=== PATIENT | female | born 1940 | race Two or more races ===

== ENCOUNTER 2018-01-22 07:21 | Emergency (ER) | payer OTHER, MEDICAID ==
[~2018-01-22] VITALS: Ht 165.1 cm; Wt 67.6 kg
[~2018-01-22 07:21] MED LIST: AMIODARONE PO; ASP81EC PO; Furosemide PO; HYDR-4683 PO; LIS5T PO; MET25T PO; METH2.5T3 PO; Nitroglycerin SL; OMEP20CA74 PO; POTA10TA75 PO; SIMV20TA90 PO; [UNRECOGNIZED DRUG - CODE] XX
[2018-01-22] MEDS ORDERED: SODIUM CHLORIDE 0.9% 1,000 ML IV ONE (09:40)
[2018-01-22 10:43] LABS: Basophils # (auto) 0 uL; Basophils % (auto) 0.4 % (0.0-2.0); Eosinophils # (auto) 0.1 uL; Eosinophils % (auto) 1.1 % (0.0-7.0); Hematocrit 38.9 % (36.0-46.0); Hemoglobin 12.9 g/dL (12.2-16.2); Lymphocytes # (auto) 1.7 uL; Mean Corpuscular Hemoglobin 31.1 pg (28.0-32.0); Mean Corpuscular Hgb Conc. 33.3 g/dL (32.0-36.0); Mean Corpuscular Volume 93.6 fL (80.0-100.0); Monocytes # (auto) 0.6 uL; Monocytes % (auto) 6.1 % (0.0-12.0); Neutrophils # (auto) 7.4 uL; Neutrophils % (auto) 75.4 % (37.0-80.0); Nucleated Red Blood Cells % 0.1 %; Platelet Count (auto) 152 10^3/uL (140-450); Red Blood Cells 4.16 10^6/uL (4.0-5.20); White Blood Cell 9.8 10^3/uL (4.4-10.8)
[2018-01-22 11:04] LABS: Partial Thromboplastin Time 30.6 sec (23.78-33.04); Prothrombin Time 10.7 sec (9.27-12.13)
[2018-01-22 11:06] LABS: Alanine Aminotransferase 15 U/L (13-56); Albumin 3.5 g/dL (3.4-5.0); Alkaline Phosphatase 137 U/L (45-117); Anion Gap 7 (5-15); Aspartate Aminotransferase 15 U/L (15-37); Bilirubin, Total 0.6 mg/dL (0.2-1.0); Blood Urea Nitrogen 13 mg/dL (7-18); Calcium 8.6 mg/dL (8.5-10.1); Carbon Dioxide 23 mmol/L (21-32); Chloride 110 mmol/L (98-107); GFR African American 88 mL/min; GFR Non-African American 72 mL/min; Glucose 95 mg/dL (74-106); Potassium 3.9 mmol/L (3.5-5.1); Sodium 140 mmol/L (136-145); Total Protein 6.9 g/dL (6.4-8.2)
[2018-01-22 11:47] VITALS: BP 179/65
[2018-01-22 12:09] LABS: Urine Bacteria NONE SEEN /hpf (None Seen); Urine Blood Negative /uL (Negative); Urine Specific Gravity 1.006 (1.001-1.035); Urine WBC 3 /hpf (0 - 5)
== END 2018-01-22 12:45 | disposition home or self-care (01) ==
LOC: ER 07:21
DX: S42.202A Unspecified fracture of upper end of left humerus, initial encounter for closed fracture (principal); R07.81 Pleurodynia; E78.5 Hyperlipidemia, unspecified; I10 Essential (primary) hypertension; I25.2 Old myocardial infarction; Z95.1 Presence of aortocoronary bypass graft; Z88.8 Allergy status to other drugs, medicaments and biological substances; W19.XXXA Unspecified fall, initial encounter; Y93.89 Activity, other specified; Y92.89 Other specified places as the place of occurrence of the external cause; Y99.8 Other external cause status
CPT/HCPCS: 29105; 36415; 71101; 73030; 80053; 81001; 84484; 85025; 85610; 85730; 99285; J7030

== ENCOUNTER 2019-01-30 06:14 | Emergency (ER) | payer OTHER, MEDICAID ==
[~2019-01-30] VITALS: Ht 167.6 cm; Wt 61.2 kg
[~2019-01-30 06:14] MED LIST changes: +AMIO200T5 PO; -AMIODARONE PO; -HYDR-4683 PO; +HYDR-4833 PO
[2019-01-30] MEDS ORDERED: IPRATROPIUM BROM 0.5 MG/2.5ML INH SOL NEB ONE (06:30)
[2019-01-30] MEDS ORDERED: ALBUTEROL SULF 2.5 MG/0.5ML(0.5%) NEB SOLN NEB STA (06:30)
[2019-01-30] MEDS ORDERED: methylPREDNISolone SOD SUCC 125 MG/2 ML VL IV ONE (07:30)
[2019-01-30 07:32] LABS: Basophils # (auto) 0 uL; Basophils % (auto) 0.4 % (0.0-2.0); Eosinophils # (auto) 0.2 uL; Eosinophils % (auto) 3.1 % (0.0-7.0); Hematocrit 39.2 % (36.0-46.0); Lymphocytes # (auto) 1.5 uL; Lymphocytes % (auto) 20.6 % (10.0-50.0); Mean Corpuscular Hgb Conc. 33.2 g/dL (32.0-36.0); Mean Corpuscular Volume 93.3 fL (80.0-100.0); Monocytes # (auto) 0.4 uL; Monocytes % (auto) 5.9 % (0.0-12.0); Platelet Count (auto) 151 10^3/uL (140-450); Red Cell Distribution Width 15.8 % (11.8-14.3); White Blood Cell 7.1 10^3/uL (4.4-10.8)
[2019-01-30 07:43] LABS: Alanine Aminotransferase 16 U/L (13-56); Albumin 3.4 g/dL (3.4-5.0); Anion Gap 5 (5-15); Blood Urea Nitrogen 15 mg/dL (7-18); Calcium 8.9 mg/dL (8.5-10.1); Carbon Dioxide 27 mmol/L (21-32); Chloride 109 mmol/L (98-107); Glucose 94 mg/dL (74-106); Potassium 3.9 mmol/L (3.5-5.1); Sodium 141 mmol/L (136-145)
[2019-01-30 07:47] LABS: Alkaline Phosphatase 133 U/L (45-117); Aspartate Aminotransferase 16 U/L (15-37); BUN/Creatinine Ratio 20.3; Bilirubin, Total 0.5 mg/dL (0.2-1.0); GFR African American 97 mL/min; GFR Non-African American 80 mL/min; Total Protein 6.7 g/dL (6.4-8.2)
[2019-01-30] MEDS ORDERED: cefTRIAXone 1GM/50ML D5W 50 ML IV ONE (09:00)
[2019-01-30 09:40] VITALS: BP 98/78
[2019-01-30] MEDS ORDERED: ALBUTEROL SULF 2.5 MG/0.5ML(0.5%) NEB SOLN NEB ONE (10:30)
[2019-01-30 10:37] LABS: Urine Bacteria FEW /hpf (None Seen); Urine Blood Negative /uL (Negative); Urine WBC 5 /hpf (0 - 5)
== END 2019-01-30 11:22 | disposition home or self-care (01) ==
LOC: ER 06:14
DX: J44.1 Chronic obstructive pulmonary disease with (acute) exacerbation (principal); E78.5 Hyperlipidemia, unspecified; I10 Essential (primary) hypertension; I25.2 Old myocardial infarction; F17.210 Nicotine dependence, cigarettes, uncomplicated; Z86.39 Personal history of other endocrine, nutritional and metabolic disease; Z95.1 Presence of aortocoronary bypass graft
CPT/HCPCS: 36415; 71045; 80053; 81001; 84484; 85025; 87040; 93005; 94640; 96365; 96375; 99284; J0696; J2930; J7611; J7644

== ENCOUNTER 2019-04-21 16:20 | Inpatient (IN) | payer OTHER, MEDICAID ==
[~2019-04-21] VITALS: Ht 165.1 cm; Wt 66.4 kg
[2019-04-21 17:04] LABS: Basophils # (auto) 0 uL; Basophils % (auto) 0.3 % (0.0-2.0); Eosinophils # (auto) 0.2 uL; Eosinophils % (auto) 2.2 % (0.0-7.0); Hematocrit 38.7 % (36.0-46.0); Lymphocytes # (auto) 1.2 uL; Mean Corpuscular Hemoglobin 31.1 pg (28.0-32.0); Mean Corpuscular Hgb Conc. 33.7 g/dL (32.0-36.0); Mean Corpuscular Volume 92.3 fL (80.0-100.0); Monocytes # (auto) 0.4 uL; Monocytes % (auto) 4.6 % (0.0-12.0); Neutrophils # (auto) 6.2 uL; Neutrophils % (auto) 77.9 % (37.0-80.0); Platelet Count (auto) 153 10^3/uL (140-450); Red Blood Cells 4.19 10^6/uL (4.0-5.20); White Blood Cell 7.9 10^3/uL (4.4-10.8)
[2019-04-21 17:25] LABS: Alanine Aminotransferase 21 U/L (13-56); Albumin 3.6 g/dL (3.4-5.0); Anion Gap 3 (5-15); Aspartate Aminotransferase 22 U/L (15-37); Blood Urea Nitrogen 17 mg/dL (7-18); Carbon Dioxide 27 mmol/L (21-32); Chloride 110 mmol/L (98-107); Glucose 107 mg/dL (74-106); Potassium 4.1 mmol/L (3.5-5.1); Sodium 140 mmol/L (136-145)
[2019-04-21 17:29] LABS: Alkaline Phosphatase 107 U/L (45-117); BUN/Creatinine Ratio 22.4; Bilirubin, Total 0.2 mg/dL (0.2-1.0); GFR African American 94 mL/min; GFR Non-African American 78 mL/min; Total Protein 6.9 g/dL (6.4-8.2)
[2019-04-21] MEDS ORDERED: ONDANSETRON HCL 4 MG/2 ML VIAL IV ONE (18:00)
[2019-04-21] MEDS ORDERED: MORPHINE SULFATE 4 MG/ML SYR/VIAL IV ONE (18:00)
[2019-04-21] MEDS ORDERED: NITROGLYCERIN 0.4 MG SL TAB SL PRN ×2 (18:30→18:45)
[2019-04-21] MEDS ORDERED: MORPHINE SULF INJ 2 MG/ML SYRINGE 1ML IV PRN (18:30)
[2019-04-21] MEDS: MORPHINE SULF INJ 2 MG/ML SYRINGE 1ML IV PRN (20:10)
[2019-04-21] MEDS: ONDANSETRON HCL 4 MG/2 ML VIAL IV PRN (20:10)
[2019-04-21 21:14] LABS: Urine Bacteria NONE SEEN /hpf (None Seen); Urine Blood Negative /uL (Negative); Urine Mucus FEW (None Seen); Urine Specific Gravity 1.019 (1.001-1.035); Urine WBC 1 /hpf (0 - 5)
[2019-04-21] MEDS: FUROSEMIDE 40 MG TAB PO SCH (21:18)
[2019-04-21] MEDS: AMIODARONE HCL 200 MG TAB PO SCH (22:16)
[2019-04-21] MEDS: ATORVASTATIN 20 MG TAB PO SCH (22:17)
[2019-04-21] MEDS: METOPROLOL TARTRATE 25 MG TAB PO SCH (22:17)
[2019-04-21 22:25] VITALS: BP 126/60
--- NOTE | 2019-04-21 22:25 | NUR ---
MS ADMIT FROM ER RECEIVED PATIENT VIA GURNEY FROM ER. PATIENT A/O X4, BEDREST. NO S/S OF DISTRESS OR SOB. NO COMPLAINTS OF PAIN AT THIS TIME. SCHERER CATHETER PRESENT DRAINING CLEAR, YELLOW URINE. UPDATED PATIENT ON POC, VERBALIZED UNDERSTANDING. BED LOCKED IN LOW POSITION, CALL LIGHT WITHIN REACH. WILL CONTINUE TO MONITOR PATIENT Q1HR AND PRN.
[2019-04-22] MEDS: MORPHINE SULF INJ 2 MG/ML SYRINGE 1ML IV PRN (04:37)
[2019-04-22 05:09] VITALS: BP 120/51
[2019-04-22] MEDS: FUROSEMIDE 40 MG TAB PO SCH ×2 (05:37→19:27)
[2019-04-22 06:37] LABS: Basophils # (auto) 0 uL; Basophils % (auto) 0.2 % (0.0-2.0); Eosinophils # (auto) 0.1 uL; Eosinophils % (auto) 0.7 % (0.0-7.0); Hematocrit 38.8 % (36.0-46.0); Lymphocytes # (auto) 0.6 uL; Lymphocytes % (auto) 5.4 % (10.0-50.0); Mean Corpuscular Hemoglobin 30.9 pg (28.0-32.0); Mean Corpuscular Hgb Conc. 33.5 g/dL (32.0-36.0); Mean Corpuscular Volume 92.3 fL (80.0-100.0); Monocytes # (auto) 0.5 uL; Monocytes % (auto) 3.9 % (0.0-12.0); Neutrophils # (auto) 10.4 uL; Neutrophils % (auto) 89.8 % (37.0-80.0); Platelet Count (auto) 152 10^3/uL (140-450); Red Cell Distribution Width 15.6 % (11.8-14.3); White Blood Cell 11.5 10^3/uL (4.4-10.8)
[2019-04-22 06:58] LABS: BUN/Creatinine Ratio 20.5; Calcium 8.7 mg/dL (8.5-10.1); Potassium 3.7 mmol/L (3.5-5.1)
[2019-04-22 08:20] LABS: INR 0.98 (0.9-1.15); Partial Thromboplastin Time 29.8 sec (23.64-32.05)
[2019-04-22 08:50] VITALS: BP 115/55
--- NOTE | 2019-04-22 09:00 | NUR ---
SEEN AND EXAMINED BY DR HERNANDEZ, INFORMED PATIENT SURGERY ON SUNDAY BY DR COHN.
[2019-04-22] MEDS: ONDANSETRON HCL 4 MG/2 ML VIAL IV PRN ×2 (09:28→11:42)
[2019-04-22] MEDS: LISINOPRIL 5 MG TAB PO SCH (10:00)
[2019-04-22] MEDS: METOPROLOL TARTRATE 25 MG TAB PO SCH ×2 (10:00→21:51)
[2019-04-22] MEDS: PANTOPRAZOLE 40 MG TAB PO SCH (10:00)
[2019-04-22] MEDS: AMIODARONE HCL 200 MG TAB PO SCH ×2 (10:00→21:50)
--- NOTE | 2019-04-22 11:12 | NUR ---
ECHO IN PROGRESS.
[2019-04-22] MEDS: ENOXAPARIN SOD 40 MG/0.4 ML SYRINGE SC SCH (11:38)
[2019-04-22 12:36] VITALS: BP 119/54
[2019-04-22 16:25] VITALS: BP 136/53
--- NOTE | 2019-04-22 19:35 | NUR ---
OPENING SHIFT NOTE RECEIVED REPORT FROM DAYSHIFT RN. PATIENT LYING IN BED WITH EYES CLOSED. NO S/S OF DISTRESS OR SOB. NO PAIN REPORTED AT THIS TIME. PATIENT A/O X4, BEDREST. SCHERER CATHETER PRESENT DRAINING CLEAR, YELLOW URINE. UPDATED PATIENT ON POC, VERBALIZED UNDERSTANDING. BED LOCKED IN LOW POSITION, CALL LIGHT WITHIN REACH. WILL CONTINUE TO MONITOR PATIENT Q1HR AND PRN.
[2019-04-22 21:07] VITALS: BP 127/60
[2019-04-22] MEDS: ATORVASTATIN 20 MG TAB PO SCH (21:51)
[2019-04-23 05:13] VITALS: BP 130/74
[2019-04-23] MEDS: FUROSEMIDE 40 MG TAB PO SCH ×2 (05:39→18:04)
[2019-04-23 06:07] LABS: Basophils # (auto) 0 uL; Basophils % (auto) 0.2 % (0.0-2.0); Eosinophils # (auto) 0 uL; Eosinophils % (auto) 0.3 % (0.0-7.0); Hematocrit 39.6 % (36.0-46.0); Hemoglobin 13.3 g/dL (12.2-16.2); Lymphocytes % (auto) 8.9 % (10.0-50.0); Mean Corpuscular Hemoglobin 30.9 pg (28.0-32.0); Mean Corpuscular Hgb Conc. 33.5 g/dL (32.0-36.0); Mean Corpuscular Volume 92.4 fL (80.0-100.0); Monocytes # (auto) 0.8 uL; Monocytes % (auto) 6.8 % (0.0-12.0); Neutrophils # (auto) 9.6 uL; Neutrophils % (auto) 83.8 % (37.0-80.0); Nucleated Red Blood Cells % 0.2 %; Platelet Count (auto) 152 10^3/uL (140-450); Red Blood Cells 4.28 10^6/uL (4.0-5.20); Red Cell Distribution Width 15.7 % (11.8-14.3); White Blood Cell 11.5 10^3/uL (4.4-10.8)
[2019-04-23 06:18] LABS: Calcium 8.4 mg/dL (8.5-10.1); Potassium 3.5 mmol/L (3.5-5.1)
[2019-04-23 06:20] LABS: BUN/Creatinine Ratio 20.4
--- NOTE | 2019-04-23 07:30 | NUR ---
Opening Shift Note Assumed care of patient, awake and alert. No S/S of distress/SOB or pain on room air. Instructed on POC and to call for assist PRN, will continue to monitor for changes Q1hr and PRN. Bed in low and locked position, rails up x2, no-slip socks on. Bed alarm on.
[2019-04-23] MEDS: MORPHINE SULF INJ 2 MG/ML SYRINGE 1ML IV PRN ×2 (08:26→21:07)
[2019-04-23 09:00] VITALS: BP 122/60
[2019-04-23] MEDS: AMIODARONE HCL 200 MG TAB PO SCH ×2 (09:47→21:07)
[2019-04-23] MEDS: PANTOPRAZOLE 40 MG TAB PO SCH (09:48)
[2019-04-23] MEDS: ENOXAPARIN SOD 40 MG/0.4 ML SYRINGE SC SCH (09:48)
[2019-04-23] MEDS: LISINOPRIL 5 MG TAB PO SCH (09:48)
[2019-04-23] MEDS: METOPROLOL TARTRATE 25 MG TAB PO SCH (09:48)
--- NOTE | 2019-04-23 09:55 | NUR ---
DR HERNANDEZ AT BEDSIDE
--- NOTE | 2019-04-23 11:25 | NUR ---
DR SALAZAR AT BEDSIDE NO NEW ORDERS
[2019-04-23 13:00] VITALS: BP 118/44
--- NOTE | 2019-04-23 14:34 | NUR ---
assessment Patient is a 78 year old female who is alert and oriented. Patients cognitive abilities are intact. Prior to admission patient lived home with her Marc and functioned independently. Patient informed me she is able to care for her own ADLs. Per patient she informed me she was helping her while he was working on the truck and she tripped on wires and fell. Patient fractured her hip. Patient really wants to return home on discharge. I informed patient we would discharge plan after surgery and after PT eval. Patient has no DME. Patient has good family support. Patients PCP is Dr Day. I informed patient she has a right to speak to a executive secretary social welfare regarding all care. I informed patient she has a right to participate in any and all discharge planning. Patient does not have a POA and advanced directive. I have offered patient information on POA and advanced directives. I informed the patient the advantages and benefits of having an Advanced Directive. Patient verbalized understanding and agreed to discharge plan. Addendum: 04/23/19 at 1442 by Silvina RENEE Amended: Links added.
--- NOTE | 2019-04-23 16:20 | NUR ---
DR COHN AT BEDSIDE STATED PATIENT TO HAVE PROCEDURE SCHEDULED FOR SUNDAY. HOLD LOVENOX ON 04/24/19.
[2019-04-23 16:59] VITALS: BP 122/55
--- NOTE | 2019-04-23 19:30 | NUR ---
OPENING SHIFT NOTE RECEIVED REPORT FROM DAYSHIFT RN. PATIENT LYING IN BED WITH FAMILY AT BEDSIDE. NO S/S OF DISTRESS OR SOB. NO PAIN REPORTED AT THIS TIME. PATIENT A/O X4, BEDREST. SCHERER CATHETER PRESENT DRAINING CLEAR, YELLOW URINE. UPDATED PATIENT ON POC, VERBALIZED UNDERSTANDING. BED LOCKED IN LOW POSITION, CALL LIGHT WITHIN REACH. WILL CONTINUE TO MONITOR PATIENT Q1HR AND PRN.
[2019-04-23] MEDS: ATORVASTATIN 20 MG TAB PO SCH (21:07)
[2019-04-23 22:00] VITALS: BP 122/51
--- NOTE | 2019-04-24 00:45 | NUR ---
Assumed care of patient who is resting in bed with eyes closed. Respirations are even and non-labored. Flynn catheter is in place, patent and draining clear yellow urine to gravity. Collection bag secured below the level of the bladder. Patient ambulates without the use of assistive devices at baseline, however is currently on bedrest due to left hip fracture. Bed is in low locked position with side rails up x2 and call light is within reach. Will continue to monitor for changes PRN.
[2019-04-24 04:56] LABS: Basophils # (auto) 0.1 uL; Basophils % (auto) 0.9 % (0.0-2.0); Eosinophils # (auto) 0.1 uL; Eosinophils % (auto) 0.8 % (0.0-7.0); Hematocrit 38.9 % (36.0-46.0); Hemoglobin 12.9 g/dL (12.2-16.2); Lymphocytes % (auto) 8.1 % (10.0-50.0); Mean Corpuscular Hemoglobin 30.8 pg (28.0-32.0); Mean Corpuscular Hgb Conc. 33.2 g/dL (32.0-36.0); Mean Corpuscular Volume 92.6 fL (80.0-100.0); Monocytes # (auto) 1.2 uL; Monocytes % (auto) 9.6 % (0.0-12.0); Neutrophils # (auto) 9.9 uL; Neutrophils % (auto) 80.6 % (37.0-80.0); Platelet Count (auto) 152 10^3/uL (140-450); Red Cell Distribution Width 15.8 % (11.8-14.3); White Blood Cell 12.3 10^3/uL (4.4-10.8)
[2019-04-24 05:17] LABS: BUN/Creatinine Ratio 26.9; Calcium 8.4 mg/dL (8.5-10.1); Potassium 3.6 mmol/L (3.5-5.1)
[2019-04-24 05:45] VITALS: BP 117/54
[2019-04-24] MEDS: FUROSEMIDE 40 MG TAB PO SCH ×2 (05:56→18:00)
--- NOTE | 2019-04-24 07:45 | NUR ---
OPENIING Patient awake in bed, bed in lowest position, call light within reach. no distress noted at this time. WIll f/u with morning assessment. per noc nurse, the patient will undergo surgery with dr ariza tomorrow sunday, and to hold off on the lovenox today 04-24 and tomorrow 04-25 per the note of dr ariza will continue to monitor this patient closely, and monitor for pain.
[2019-04-24 08:38] VITALS: BP 115/47
[2019-04-24] MEDS: LISINOPRIL 5 MG TAB PO SCH (10:00)
[2019-04-24] MEDS: PANTOPRAZOLE 40 MG TAB PO SCH (11:06)
[2019-04-24] MEDS: AMIODARONE HCL 200 MG TAB PO SCH ×2 (11:07→22:13)
[2019-04-24] MEDS: METOPROLOL TARTRATE 25 MG TAB PO SCH ×2 (11:07→22:15)
[2019-04-24] MEDS: MORPHINE SULF INJ 2 MG/ML SYRINGE 1ML IV PRN ×2 (13:00→21:59)
[2019-04-24 17:00] VITALS: BP 118/49
--- NOTE | 2019-04-24 19:30 | NUR ---
Opening Shift Note Pt is resting in bed with eyes open and resp rate is even and unlabored. POC discussed with pt and pt verbalizes understanding. Pt is refusing to allow staff to turn or roll her r/t left hip fx and risks of skin breakdown explained to pt and pt verbalizes understanding. Pt will not even allow this RN to move her LE at all. Able to push a pillow down under right hip at this time. Will continue to monitor. Bed is low, wheels are locked, and call light is with in reach. Bed alarm is set for pt safety.
[2019-04-24 22:00] VITALS: BP 113/52
[2019-04-24] MEDS: ATORVASTATIN 20 MG TAB PO SCH (22:13)
[2019-04-25] VITALS (11 sets, daily range): BP systolic 107–131; BP diastolic 49–72
[2019-04-25] MEDS: MORPHINE SULF INJ 2 MG/ML SYRINGE 1ML IV PRN (04:58)
--- NOTE | 2019-04-25 05:13 | NUR ---
Pt cleaned with CHG wipes , gown changed , and complete linen and change done now.
[2019-04-25 05:14] LABS: Basophils # (auto) 0 uL; Basophils % (auto) 0.3 % (0.0-2.0); Eosinophils # (auto) 0.2 uL; Hematocrit 37.8 % (36.0-46.0); Hemoglobin 12.9 g/dL (12.2-16.2); Lymphocytes # (auto) 0.9 uL; Mean Corpuscular Hemoglobin 31.7 pg (28.0-32.0); Mean Corpuscular Hgb Conc. 34.1 g/dL (32.0-36.0); Mean Corpuscular Volume 93.1 fL (80.0-100.0); Monocytes % (auto) 9.7 % (0.0-12.0); Neutrophils # (auto) 8.1 uL; Platelet Count (auto) 138 10^3/uL (140-450); Red Blood Cells 4.06 10^6/uL (4.0-5.20); Red Cell Distribution Width 15.5 % (11.8-14.3); White Blood Cell 10.2 10^3/uL (4.4-10.8)
[2019-04-25] MEDS: FUROSEMIDE 40 MG TAB PO SCH ×2 (05:16→18:00)
[2019-04-25 05:26] LABS: BUN/Creatinine Ratio 29.5; Calcium 8.6 mg/dL (8.5-10.1); Potassium 3.7 mmol/L (3.5-5.1)
--- NOTE | 2019-04-25 07:25 | NUR ---
Opening Note Received report from shift lab technician RN. Patient is awake, alert and oriented x4. Patient denies pain at this time. Patient is NPO for scheduled surgery today. Patient has Flynn catheter, patent and draining yellow urine. Reviewed plan of care with patient, patient verbalized understanding. Bed in low and locked position, call light within reach. Will continue to monitor Q1 hour and PRN.
--- NOTE | 2019-04-25 08:15 | NUR ---
IV Insertion 20g IV inserted in left AC. Patient tolerated well. IV removed from left hand, pressure dressing applied. Will continue to monitor Q1 hour and PRN.
[2019-04-25] MEDS: AMIODARONE HCL 200 MG TAB PO SCH ×2 (08:25→23:01)
[2019-04-25] MEDS: PANTOPRAZOLE 40 MG TAB PO SCH (08:30)
[2019-04-25] MEDS: METOPROLOL TARTRATE 25 MG TAB PO SCH ×2 (08:30→22:00)
[2019-04-25] MEDS: LISINOPRIL 5 MG TAB PO SCH (08:30)
--- NOTE | 2019-04-25 08:30 | NUR ---
Patient taken down to OR
[2019-04-25] MEDS ORDERED: TETRACAINE 1% INJ 2 ML VIAL IJ ONE (09:22)
[2019-04-25] MEDS ORDERED: fentaNYL CITRATE 100 MCG/2 ML VL ONE (09:25)
[2019-04-25] MEDS ORDERED: MORPHINE SULF(PF) 0.5MG/ML 10ML VIAL ONE (09:25)
[2019-04-25] MEDS ORDERED: EPINEPHrine HCL 1 MG/1 ML AMP ONE (09:26)
[2019-04-25] MEDS ORDERED: PROPOFOL 10 MG/ML 20 ML IV ONE (09:26)
[2019-04-25] MEDS ORDERED: SODIUM CHLORIDE LOCK 10 ML ONE (09:26)
[2019-04-25] MEDS ORDERED: ceFAZolin 1GM/50ML 50 ML IV ONE (09:26)
[2019-04-25] MEDS ORDERED: BUPIVACAINE/DEXTROSE MPF 0.75% 2 ML AMP IT ONE (09:26)
[2019-04-25] MEDS ORDERED: ONDANSETRON HCL 4 MG/2 ML VIAL ONE (09:26)
[2019-04-25] MEDS ORDERED: MIDAZOLAM HCL 1MG/1ML-2 ML VIAL ONE (09:26)
[2019-04-25] MEDS ORDERED: KETAMINE HCL 1 ML ONE (09:29)
[2019-04-25] MEDS ORDERED: LIDOCAINE HCL 100 MG/5ML (2%) SYRG INJ IV ONE (10:18)
[2019-04-25] MEDS ORDERED: ceFAZolin 1GM VL ONE (10:18)
[2019-04-25] MEDS ORDERED: LIDOCAINE 4MG/ML IV SOLN 500 ML IV SCH (10:45)
--- NOTE | 2019-04-25 11:22 | NUR ---
NUTRITION CONSULT/ASSESSMENT NOTES Please refer to link notes of nutrition screen form filed under the intervention section of the plan of care for further details. Est. Needs: 1650 kcal to 2000 kcal (25-30 kcal/kgBW), 66 gms to 79 gms pro (1.0-1.2 gms/kgBW). Will continue to monitor pertinent labs and reassess nutrient need prn Thank you for this consult. Addendum: 04/25/19 at [address] Amended: Links added.
[2019-04-25] MEDS ORDERED: HYDROmorphone HCL 2 MG/ML VL IV PRN (12:00)
[2019-04-25] MEDS ORDERED: diphenhdrAMINE HCL 50 MG/1 ML VL IV PRN (12:00)
[2019-04-25] MEDS ORDERED: NALOXONE HCL 0.4 MG/ML VIAL IV PRN (12:00)
[2019-04-25] MEDS ORDERED: fentaNYL CITRATE 100 MCG/2 ML VL IV PRN (12:00)
[2019-04-25] MEDS ORDERED: MORPHINE SULFATE 4 MG/ML SYR/VIAL IV PRN (12:00)
[2019-04-25] MEDS ORDERED: METOCLOPRAMIDE HCL 5MG/ml INJ 2ml VIAL IV PRN (12:00)
[2019-04-25] MEDS ORDERED: LIDOCAINE 2% (LOCAL ANESTH.) PF 5ml SDV ONE (14:18)
--- NOTE | 2019-04-25 15:15 | NUR ---
Received report from OR recovery nurse Rui Per report patient had spinal Duramorph anesthesia that began at 1045. Patients vital assessment to be assessed Q1 once back to room. Will implement.
--- NOTE | 2019-04-25 15:20 | NUR ---
Patient back to room Dressing to left hip clean, dry and intact. Patient is awake, alert and oriented x4. No signs or symptoms of distress noted at this time. Patient denies pain at this time. Vitals signs assessed. Will continue to monitor Q1 hour and PRN.
--- NOTE | 2019-04-25 15:25 | NUR ---
Patient upgraded to telemetry. Patient on residential monitor #[id number]. Patient is sinus rhythm 81. Will continue to monitor Q1 hour and PRN.
[2019-04-25] MEDS: ceFAZolin 1GM/50ML 50 ML IV SCH ×2 (17:53→23:02)
--- NOTE | 2019-04-25 19:29 | NUR ---
Closing Note Report given to land classifier RN. No signs or symptoms of distress noted at this time. Family at bedside.
--- NOTE | 2019-04-25 22:05 | NUR ---
PT TURNED WITH NEW GOWN AND LINEN APPLIED;PULLED UP IN BED. TOLERATED WELL.
--- NOTE | 2019-04-25 22:45 | NUR ---
PT PULLED OUT IV. 20 GAUGE INSERTED INTO LEFT UPPER DELTOID WITH PATIENT TOLERATING WELL.
[2019-04-25] MEDS: ATORVASTATIN 20 MG TAB PO SCH (23:01)
--- NOTE | 2019-04-26 01:00 | NUR ---
MACHELLE CRAFT PRESENT.
[2019-04-26 04:30] VITALS: BP 124/49
[2019-04-26] MEDS: FUROSEMIDE 40 MG TAB PO SCH ×2 (06:00→18:51)
[2019-04-26] MEDS: ceFAZolin 1GM/50ML 50 ML IV SCH ×2 (06:18→13:25)
[2019-04-26 06:54] LABS: Basophils # (auto) 0 uL; Basophils % (auto) 0.1 % (0.0-2.0); Eosinophils # (auto) 0 uL; Eosinophils % (auto) 0.1 % (0.0-7.0); Hematocrit 33.3 % (36.0-46.0); Hemoglobin 11.3 g/dL (12.2-16.2); Lymphocytes # (auto) 0.6 uL; Mean Corpuscular Hemoglobin 31.2 pg (28.0-32.0); Mean Corpuscular Volume 91.7 fL (80.0-100.0); Monocytes # (auto) 1.1 uL; Monocytes % (auto) 9.4 % (0.0-12.0); Neutrophils # (auto) 10.2 uL; Neutrophils % (auto) 85.4 % (37.0-80.0); Platelet Count (auto) 129 10^3/uL (140-450); Red Blood Cells 3.63 10^6/uL (4.0-5.20); Red Cell Distribution Width 15.2 % (11.8-14.3)
--- NOTE | 2019-04-26 06:56 | NUR ---
SPINAL ANETHESIA INTERVENTION NOT RECOGNIZING Q I HOUR PROGRESSIVE VITALS ;SUMMARY OF Q1HOUR VITALS IS FOLLOWS; 2300-126/44;HR 83 RESP16 O2 SAT 99% 0000-118/67 85 RESP 16 02 SAT 97% 0100-124/60 88 RESP 18 02 SAT 95% 0200-125/53 84 RESP 16 95% 0300-122/54 79 RESP 16 O2 SAT96% 0400-TEMP 98.7 124/49 88 HR 95% O2 SAT 0500-118/84 78 RESP 18 02 SAT 96% 0600-102/58 65 RESP 16 O2 SAT 95% 0700 103/66 67 HEART RATE 16 RESP 95% 02 SAT
[2019-04-26 07:05] LABS: BUN/Creatinine Ratio 30.1; Calcium 8.2 mg/dL (8.5-10.1); Potassium 3.5 mmol/L (3.5-5.1)
[2019-04-26] MEDS: AMIODARONE HCL 200 MG TAB PO SCH ×2 (09:49→21:30)
[2019-04-26] MEDS: PANTOPRAZOLE 40 MG TAB PO SCH (09:49)
[2019-04-26] MEDS: METOPROLOL TARTRATE 25 MG TAB PO SCH ×2 (09:50→21:35)
[2019-04-26] MEDS: LISINOPRIL 5 MG TAB PO SCH (09:50)
[2019-04-26] MEDS: ENOXAPARIN SOD 40 MG/0.4 ML SYRINGE SC SCH (09:52)
[2019-04-26] MEDS: HYDROcodone-ACET 5/325MG TAB PO PRN (10:17)
--- NOTE | 2019-04-26 19:35 | NUR ---
Opening Shift Note Assumed care of patient, asleep resting in bed with breaths even and unlabored. No S/S of distress/SOB or pain noted. Instructed on POC and to call for assist PRN. Bed is in lowest locked position with bed rails up x2 and call light is within reach of the patient. Sitter at the bedside with SCD's on bilateral legs. Dressing to left hip is dry and intact. Addendum: 04/27/19 at 0157 by Abimbola Brown RN RN incentive spirometry at bedside.
[2019-04-26 21:11] VITALS: BP_SYST 115; BP_SYST 98; BP_DIAS 51; BP_DIAS 58
[2019-04-26 21:30] VITALS: BP 115/51
[2019-04-26] MEDS: ATORVASTATIN 20 MG TAB PO SCH (21:35)
[2019-04-27 05:00] VITALS: BP 106/43
[2019-04-27] MEDS: FUROSEMIDE 40 MG TAB PO SCH (05:52)
[2019-04-27 06:54] LABS: Basophils # (auto) 0 uL; Basophils % (auto) 0.2 % (0.0-2.0); Eosinophils # (auto) 0 uL; Eosinophils % (auto) 0.1 % (0.0-7.0); Hematocrit 32.8 % (36.0-46.0); Hemoglobin 11.1 g/dL (12.2-16.2); Lymphocytes # (auto) 0.7 uL; Lymphocytes % (auto) 5.3 % (10.0-50.0); Mean Corpuscular Hemoglobin 31.3 pg (28.0-32.0); Mean Corpuscular Hgb Conc. 33.9 g/dL (32.0-36.0); Mean Corpuscular Volume 92.3 fL (80.0-100.0); Monocytes # (auto) 1.3 uL; Monocytes % (auto) 9.3 % (0.0-12.0); Neutrophils # (auto) 11.6 uL; Neutrophils % (auto) 85.1 % (37.0-80.0); Platelet Count (auto) 132 10^3/uL (140-450); Red Blood Cells 3.56 10^6/uL (4.0-5.20); Red Cell Distribution Width 15.2 % (11.8-14.3); White Blood Cell 13.7 10^3/uL (4.4-10.8)
[2019-04-27 07:10] LABS: Calcium 8.2 mg/dL (8.5-10.1); Magnesium 2.2 mg/dL (1.6-2.6); Potassium 3.6 mmol/L (3.5-5.1)
--- NOTE | 2019-04-27 07:30 | NUR ---
Opening Shift Note RECEIVED REPORT FROM NOC RN. Assumed care of patient, awake and alert. PATIENT ON OXYGEN AT 2 LPM VIA NASAL CANNULA WITH no S/S of distress/SOB or pain. BED IN LOWEST, LOCKED POSITION WITH SIDERAILS UP x2 AND CALL LIGHT WITHIN REACH AND SITTER AT BEDSIDE. Instructed on POC and to call for assist PRN, will continue to monitor for changes Q1hr and PRN.
[2019-04-27] MEDS: HYDROcodone-ACET 5/325MG TAB PO PRN (08:48)
[2019-04-27 09:00] VITALS: BP 96/41
[2019-04-27] MEDS: LISINOPRIL 5 MG TAB PO SCH (10:00)
[2019-04-27] MEDS: METOPROLOL TARTRATE 25 MG TAB PO SCH (10:00)
[2019-04-27] MEDS: PANTOPRAZOLE 40 MG TAB PO SCH (10:00)
[2019-04-27] MEDS: ENOXAPARIN SOD 40 MG/0.4 ML SYRINGE SC SCH (10:00)
[2019-04-27] MEDS: AMIODARONE HCL 200 MG TAB PO SCH (10:01)
[2019-04-27] MEDS ORDERED: APIX5TAB OR (12:02)
--- NOTE | 2019-04-27 12:57 | NUR ---
o/c note contacted [facility] and [facility] service who will contact their o/c CM Srinivas
[2019-04-27 13:00] VITALS: BP 108/54
--- NOTE | 2019-04-27 13:09 | NUR ---
o/c note Asked primary RN Franco to fax snf packet to [facility] fax # [phone]
--- NOTE | 2019-04-27 13:28 | NUR ---
SNF PACKET FAXED TO [facility] PER O/C ARPIT ORNELAS.
--- NOTE | 2019-04-27 13:42 | NUR ---
o/c note pt will be going to [facility] rm 65a and Cally will be transporting ptAntolin Espino to call unit with pickup time.
--- NOTE | 2019-04-27 14:12 | NUR ---
o/c note Cally to nut picker pt at 1700 hrs today to take to [facility] ph [phone]
--- NOTE | 2019-04-27 16:55 | NUR ---
ROGELIO AT BEDSIDE FOR TRANSPORTATION.
[2019-04-27 17:02] VITALS: BP 120/46
--- NOTE | 2019-04-27 17:10 | NUR ---
Discharge instructions given as ordered. All questions and concerns addressed. Patient verbalized understanding. IV removed with catheter intact, pressure dressing applied. Medication reconciliation form completed and copy given to patient. Telemetry unit returned to ICU. Report given to BING at [facility]. Patient transported by [employer] with all personal belongings. No distress noted at time of departure.
== END 2019-04-27 17:10 | DRG 470 ==
LOC: ER 16:20 → EDBD 16:20 → OVERFLOW 16:21 → CENTRAL 22:21 → TELE-CENTR 04-25 17:50
PROVIDERS: ADMIT Internal Medicine; ATTEND Internal Medicine
PROC: 0MBM0ZZ Excision of Left Hip Bursa and Ligament, Open Approach (ICD-10-PCS; 2019-04-25)
PROC: 0SRS0JZ Replacement of Left Hip Joint, Femoral Surface with Synthetic Substitute, Open Approach (ICD-10-PCS; principal; 2019-04-25 09:38)
DX: S72.032A Displaced midcervical fracture of left femur, initial encounter for closed fracture (principal); I50.22 Chronic systolic (congestive) heart failure; E78.5 Hyperlipidemia, unspecified; I11.0 Hypertensive heart disease with heart failure; I25.10 Atherosclerotic heart disease of native coronary artery without angina pectoris; I48.91 Unspecified atrial fibrillation; I70.0 Atherosclerosis of aorta; I25.5 Ischemic cardiomyopathy; I48.0 Paroxysmal atrial fibrillation; I49.3 Ventricular premature depolarization; M06.9 Rheumatoid arthritis, unspecified; M85.80 Other specified disorders of bone density and structure, unspecified site; Z96.642 Presence of left artificial hip joint; W01.0XXA Fall on same level from slipping, tripping and stumbling without subsequent striking against object, initial encounter; M70.72 Other bursitis of hip, left hip; Z95.1 Presence of aortocoronary bypass graft; Z79.899 Other long term (current) drug therapy; Z88.8 Allergy status to other drugs, medicaments and biological substances; I25.2 Old myocardial infarction; Z87.891 Personal history of nicotine dependence; Y93.89 Activity, other specified; Y92.89 Other specified places as the place of occurrence of the external cause; Y99.8 Other external cause status; Z74.01 Bed confinement status
CPT/HCPCS: 36415; 71045; 72192; 73501; 80048; 80053; 81001; 83735; 84484; 85025; 85610; 85730; 86850; 86900; 86901; 93005; 93306; 96374; 96375; 97110; 97116; 97530; C1776; G0378; J0171; J0690; J2001; J2250; J2405; J2704

== ENCOUNTER 2019-10-04 12:03 | Emergency (ER) | payer OTHER, MEDICAID ==
[~2019-10-04] VITALS: Ht 165.1 cm; Wt 63.5 kg
[~2019-10-04 12:03] MED LIST changes: +APIX5TAB OR; -Furosemide PO; -HYDR-4833 PO; -POTA10TA75 PO
[2019-10-04 14:00] VITALS: BP 154/73
[2019-10-04] MEDS ORDERED: traMADol HCL 50 MG TAB PO ONE (14:15)
== END 2019-10-04 14:27 | disposition home or self-care (01) ==
LOC: ER 12:03
DX: S42.211A Unspecified displaced fracture of surgical neck of right humerus, initial encounter for closed fracture (principal); S29.011A Strain of muscle and tendon of front wall of thorax, initial encounter; M19.021 Primary osteoarthritis, right elbow; E07.9 Disorder of thyroid, unspecified; E78.5 Hyperlipidemia, unspecified; M19.90 Unspecified osteoarthritis, unspecified site; W01.0XXA Fall on same level from slipping, tripping and stumbling without subsequent striking against object, initial encounter; Y93.01 Activity, walking, marching and hiking; Y92.89 Other specified places as the place of occurrence of the external cause; Y99.8 Other external cause status
CPT/HCPCS: 71101; 73060; 73080

== ENCOUNTER 2021-03-16 16:37 | Emergency (ER) | payer OTHER, MEDICAID ==
[~2021-03-16] VITALS: Ht 165.1 cm; Wt 61.2 kg
[~2021-03-16 16:37] MED LIST changes: -AMIO200T5 PO; +AMIO200T6 PO; -ASP81EC PO; +ASPI-394 PO; +METH2.5T PO; -METH2.5T3 PO; +SIMV20TA2 PO; -SIMV20TA90 PO
[2021-03-16 16:38] VITALS: BP 118/73
== END 2021-03-16 23:21 | disposition home or self-care (01) ==
LOC: ER 16:37
DX: M25.551 Pain in right hip (principal); Z95.1 Presence of aortocoronary bypass graft; Z79.899 Other long term (current) drug therapy; Z79.82 Long term (current) use of aspirin; Z88.8 Allergy status to other drugs, medicaments and biological substances; W01.0XXA Fall on same level from slipping, tripping and stumbling without subsequent striking against object, initial encounter; Y93.89 Activity, other specified; Y92.89 Other specified places as the place of occurrence of the external cause; Y99.8 Other external cause status
CPT/HCPCS: 72192

== ENCOUNTER 2021-03-28 11:06 | Inpatient (IN) | payer OTHER, MEDICAID ==
[~2021-03-28] VITALS: Ht 167.6 cm; Wt 65.5 kg
[2021-03-28 11:49] LABS: Basophils # (auto) 0 10 ^3/uL (0-0.2); Basophils % (auto) 0.4 % (0.0-2.0); Eosinophils # (auto) 0 10 ^3/uL (0-0.8); Eosinophils % (auto) 0.5 % (0.0-7.0); Hematocrit 38.1 % (36.0-46.0); Hemoglobin 12.8 g/dL (12.2-16.2); Lymphocytes # (auto) 1.1 10 ^3/uL (0.4-5.4); Lymphocytes % (auto) 10.4 % (10.0-50.0); Mean Corpuscular Hemoglobin 29.8 pg (28.0-32.0); Mean Corpuscular Hgb Conc. 33.5 g/dL (32.0-36.0); Mean Corpuscular Volume 89.1 fL (80.0-100.0); Monocytes # (auto) 0.5 10 ^3/uL (0-1.3); Monocytes % (auto) 4.9 % (0.0-12.0); Neutrophils # (auto) 8.7 10 ^3/uL (1.6-8.6); Neutrophils % (auto) 83.8 % (37.0-80.0); Red Blood Cells 4.28 10^6/uL (4.0-5.20); White Blood Cell 10.4 10^3/uL (4.4-10.8)
[2021-03-28 12:06] LABS: Potassium 3.9 mmol/L (3.5-5.1)
[2021-03-28 12:11] LABS: INR 1.04 (0.9-1.15); Partial Thromboplastin Time 27.4 sec (23.6-33.0)
[2021-03-28 12:18] LABS: Albumin 2.8 g/dL (3.4-5.0); BUN/Creatinine Ratio 19.4; Bilirubin, Total 0.4 mg/dL (0.2-1.0); Calcium 9.1 mg/dL (8.5-10.1)
[2021-03-28] MEDS ORDERED: NITROGLYCERIN 0.4 MG SL TAB SL PRN (14:00)
[2021-03-28] MEDS ORDERED: SENNA 8.6 MG TAB PO ONE (14:00)
[2021-03-28] MEDS ORDERED: HYDROmorphone HCL 2 MG/ML VL IV PRN (14:00)
[2021-03-28] MEDS ORDERED: SODIUM CHLORIDE 0.9% 1,000 ML IV ONE (14:00)
[2021-03-28] MEDS ORDERED: MORPHINE SULFATE INJECTION 2 MG/ML SYRG IV PRN (14:00)
[2021-03-28] MEDS: HYDROcodone-ACET 5/325MG TAB PO PRN (18:54)
[2021-03-28] MEDS: HEPARIN SODIUM (PORCINE) 5000 UNITS/ML 1ML VIAL SC SCH (22:00)
[2021-03-28 23:11] LABS: Urine Bacteria NONE SEEN /hpf (None Seen); Urine Blood Negative /uL (Negative); Urine Mucus FEW (None Seen); Urine Specific Gravity 1.012 (1.001-1.035); Urine WBC 1 /hpf (0 - 5)
[2021-03-29] VITALS (7 sets, daily range): BP systolic 127–165; BP diastolic 64–80
[2021-03-29] MEDS ORDERED: METH2.5T PO (02:51)
[2021-03-29] MEDS ORDERED: OMEP20TA PO (02:51)
[2021-03-29] MEDS ORDERED: ATOR40TA52 PO (02:51)
[2021-03-29] MEDS ORDERED: LISI20TA28 PO (02:52)
[2021-03-29 06:10] LABS: Basophils # (auto) 0 10 ^3/uL (0-0.2); Basophils % (auto) 0.4 % (0.0-2.0); Eosinophils # (auto) 0.1 10 ^3/uL (0-0.8); Eosinophils % (auto) 1.7 % (0.0-7.0); Hematocrit 35.6 % (36.0-46.0); Hemoglobin 12.3 g/dL (12.2-16.2); Lymphocytes # (auto) 1.2 10 ^3/uL (0.4-5.4); Lymphocytes % (auto) 17.2 % (10.0-50.0); Mean Corpuscular Hemoglobin 30.7 pg (28.0-32.0); Mean Corpuscular Hgb Conc. 34.4 g/dL (32.0-36.0); Mean Corpuscular Volume 89.2 fL (80.0-100.0); Monocytes # (auto) 0.4 10 ^3/uL (0-1.3); Monocytes % (auto) 5.9 % (0.0-12.0); Neutrophils # (auto) 5.2 10 ^3/uL (1.6-8.6); Neutrophils % (auto) 74.8 % (37.0-80.0); Nucleated Red Blood Cells % 0.1 %; Red Blood Cells 3.99 10^6/uL (4.0-5.20); Red Cell Distribution Width 15.1 % (11.8-14.3)
[2021-03-29 06:30] LABS: Albumin 2.5 g/dL (3.4-5.0); Calcium 9.1 mg/dL (8.5-10.1); INR 1.09 (0.9-1.15); Partial Thromboplastin Time 28.2 sec (23.6-33.0); Potassium 3.5 mmol/L (3.5-5.1)
[2021-03-29 06:35] LABS: BUN/Creatinine Ratio 21.8; Bilirubin, Total 0.6 mg/dL (0.2-1.0); Total Protein 6.4 g/dL (6.4-8.2)
[2021-03-29] MEDS: HEPARIN SODIUM (PORCINE) 5000 UNITS/ML 1ML VIAL SC SCH ×2 (11:28→22:00)
[2021-03-29] MEDS ORDERED: hydrALAZINE HCL 20 MG/ML VL IV PRN (12:15)
[2021-03-29] MEDS ORDERED: ONDANSETRON HCL 4 MG/2 ML VIAL IV PRN ×3 (16:45→21:15)
[2021-03-29] MEDS ORDERED: KETAMINE HCL 10 ML ONE (18:52)
[2021-03-29] MEDS ORDERED: MIDAZOLAM HCL 2MG/2ML 2ml VIAL (1mg/ml) ONE (18:52)
[2021-03-29] MEDS ORDERED: fentaNYL CITRATE 100 MCG/2 ML VL ONE (18:52)
[2021-03-29] MEDS ORDERED: PROPOFOL 10 MG/ML 20 ML IV ONE (18:53)
[2021-03-29] MEDS ORDERED: HYDROCORTISONE SOD SUCC 100 MG/2ML INJ VIAL ONE (18:53)
[2021-03-29] MEDS ORDERED: LIDOCAINE 2% (LOCAL ANESTH.) PF 5ml SDV ONE (18:53)
[2021-03-29] MEDS ORDERED: ePHEDrine SULFATE 50 MG/ML AMP ONE (18:53)
[2021-03-29] MEDS ORDERED: GLYCOPYRROLATE 0.2 MG/ML 1ML VIAL ONE (18:53)
[2021-03-29] MEDS ORDERED: ONDANSETRON HCL 4 MG/2 ML VIAL ONE (18:53)
[2021-03-29] MEDS ORDERED: MORPHINE SULF PF 2 MG/2 ML SYRG ONE (18:58)
[2021-03-29] MEDS ORDERED: ceFAZolin 1GM/50ML 100 ML IV ONE (19:04)
[2021-03-29] MEDS ORDERED: BUPIVACAINE 0.5% P/F INJ 10 ML VIAL ONE (19:19)
[2021-03-29] MEDS ORDERED: diphenhdrAMINE HCL 50 MG/1 ML VL IV PRN (21:15)
[2021-03-29] MEDS ORDERED: NALOXONE HCL 0.4 MG/ML VIAL IV PRN (21:15)
[2021-03-29] MEDS ORDERED: DexAMETHasone SOD PHOS 10MG/1ML VIAL INJ IV PRN (21:15)
[2021-03-29] MEDS: ceFAZolin 1GM/50ML 50 ML IV SCH (23:20)
[2021-03-29] MEDS: LACTATED RINGER'S 1,000 ML IV SCH (23:21)
[2021-03-30] VITALS (24 sets, daily range): BP systolic 107–144; BP diastolic 48–95
[2021-03-30] MEDS: SODIUM CHLOR 0.9% PF (SALINE LOCK) 10ML VIAL/SYR IV SCH ×3 (04:44→14:10)
[2021-03-30] MEDS: ceFAZolin 1GM/50ML 50 ML IV SCH ×2 (04:53→08:36)
[2021-03-30] MEDS: HYDROCORTISONE SOD SUCC 100 MG/2ML INJ VIAL IV SCH ×3 (05:09→14:10)
[2021-03-30 06:35] LABS: Calcium 9.6 mg/dL (8.5-10.1); Potassium 3.7 mmol/L (3.5-5.1)
[2021-03-30 06:36] LABS: Basophils # (auto) 0 10 ^3/uL (0-0.2); Basophils % (auto) 0.1 % (0.0-2.0); Eosinophils # (auto) 0 10 ^3/uL (0-0.8); Hematocrit 37.6 % (36.0-46.0); Hemoglobin 12.4 g/dL (12.2-16.2); Lymphocytes % (auto) 6.9 % (10.0-50.0); Mean Corpuscular Hemoglobin 30.1 pg (28.0-32.0); Mean Corpuscular Volume 91.2 fL (80.0-100.0); Monocytes # (auto) 0.5 10 ^3/uL (0-1.3); Monocytes % (auto) 3.8 % (0.0-12.0); Neutrophils # (auto) 12.3 10 ^3/uL (1.6-8.6); Neutrophils % (auto) 89.2 % (37.0-80.0); Red Blood Cells 4.12 10^6/uL (4.0-5.20); Red Cell Distribution Width 14.9 % (11.8-14.3); White Blood Cell 13.8 10^3/uL (4.4-10.8)
[2021-03-30 06:40] LABS: Albumin 2.5 g/dL (3.4-5.0); BUN/Creatinine Ratio 25.3; Bilirubin, Total 0.4 mg/dL (0.2-1.0); Total Protein 6.4 g/dL (6.4-8.2)
[2021-03-30] MEDS: HEPARIN SODIUM (PORCINE) 5000 UNITS/ML 1ML VIAL SC SCH (10:06)
[2021-03-30] MEDS: HYDROcodone-ACET 5/325MG TAB PO PRN (10:07)
[2021-03-30] MEDS: LACTATED RINGER'S 1,000 ML IV SCH ×2 (12:15→16:45)
== END 2021-03-30 21:40 | DRG 481 ==
LOC: ER 11:06 → EDBD 11:06 → OVERFLOW 13:48 → CENTRAL 23:31 → TELE-CENTR 03-29 22:23
PROVIDERS: ADMIT Internal Medicine; ATTEND Internal Medicine
PROC: BW1C1ZZ Fluoroscopy of Lower Extremity using Low Osmolar Contrast (ICD-10-PCS; 2021-03-29)
PROC: 3E0V3GC Introduction of Other Therapeutic Substance into Bones, Percutaneous Approach (ICD-10-PCS; 2021-03-29)
PROC: 0QS634Z Reposition Right Upper Femur with Internal Fixation Device, Percutaneous Approach (ICD-10-PCS; principal; 2021-03-29 19:40)
DX: S72.091A Other fracture of head and neck of right femur, initial encounter for closed fracture (principal); I50.32 Chronic diastolic (congestive) heart failure; W01.0XXA Fall on same level from slipping, tripping and stumbling without subsequent striking against object, initial encounter; I25.10 Atherosclerotic heart disease of native coronary artery without angina pectoris; K21.9 Gastro-esophageal reflux disease without esophagitis; E03.9 Hypothyroidism, unspecified; E78.5 Hyperlipidemia, unspecified; M06.9 Rheumatoid arthritis, unspecified; E78.00 Pure hypercholesterolemia, unspecified; F17.210 Nicotine dependence, cigarettes, uncomplicated; I11.0 Hypertensive heart disease with heart failure; Z20.822 Contact with and (suspected) exposure to COVID-19; Z82.49 Family history of ischemic heart disease and other diseases of the circulatory system; Z95.1 Presence of aortocoronary bypass graft; Y93.89 Activity, other specified; Y92.89 Other specified places as the place of occurrence of the external cause; Z88.8 Allergy status to other drugs, medicaments and biological substances; Y99.8 Other external cause status
CPT/HCPCS: 36415; 71045; 73502; 73700; 76000; 80053; 81001; 82962; 85025; 85610; 85730; 86850; 86900; 86901; 87426; 93005; 93306; 97163; A4565; G0378; J0690; J2001; J2250; J2405; J2704; J3490

== ENCOUNTER 2021-04-19 09:48 | Emergency (ER) | payer OTHER, MEDICAID ==
[~2021-04-19] VITALS: Ht 154.9 cm; Wt 58.5 kg
[~2021-04-19 09:48] MED LIST changes: +AMIO200T5 PO; -AMIO200T6 PO; -APIX5TAB OR; +ATOR40TA52 PO; -LIS5T PO; +LISI20TA28 PO; -MET25T PO; -OMEP20CA74 PO; +OMEP20TA PO; -SIMV20TA2 PO; -[UNRECOGNIZED DRUG - CODE] XX
[2021-04-19 09:56] VITALS: BP 154/67
== END 2021-04-19 10:26 | disposition left against medical advice (07) ==
LOC: ER 09:48
DX: Z48.01 Encounter for change or removal of surgical wound dressing (principal); Z53.21 Procedure and treatment not carried out due to patient leaving prior to being seen by health care provider

== ENCOUNTER 2021-07-15 09:15 | Emergency (ER) | payer OTHER, MEDICAID ==
[~2021-07-15] VITALS: Ht 165.1 cm; Wt 56.7 kg
[~2021-07-15 09:15] MED LIST changes: -AMIO200T5 PO; +AMIO200T6 PO
[2021-07-15 10:19] VITALS: BP 132/84
[2021-07-15] MEDS ORDERED: ONDANSETRON ODT 4 MG TAB PO ONE (11:15)
[2021-07-15] MEDS ORDERED: HYDROcodone-ACET 5/325MG TAB PO ONE (11:15)
== END 2021-07-15 11:46 | disposition home or self-care (01) ==
LOC: ER 09:15
DX: S42.212A Unspecified displaced fracture of surgical neck of left humerus, initial encounter for closed fracture (principal); I10 Essential (primary) hypertension; I25.10 Atherosclerotic heart disease of native coronary artery without angina pectoris; E78.5 Hyperlipidemia, unspecified; E03.9 Hypothyroidism, unspecified; F17.210 Nicotine dependence, cigarettes, uncomplicated; Z95.1 Presence of aortocoronary bypass graft; Z79.82 Long term (current) use of aspirin; Z79.899 Other long term (current) drug therapy; Z88.8 Allergy status to other drugs, medicaments and biological substances; W01.0XXA Fall on same level from slipping, tripping and stumbling without subsequent striking against object, initial encounter; Y93.89 Activity, other specified; Y92.89 Other specified places as the place of occurrence of the external cause; Y99.8 Other external cause status
CPT/HCPCS: 73030; 99283; Q0162

== ENCOUNTER 2024-05-27 04:25 | Inpatient (IN) | payer OTHER, MEDICAID ==
[~2024-05-27] VITALS: Ht 154.9 cm; Wt 74.3 kg
[~2024-05-27 04:25] MED LIST changes: +AMIO200T50 PO; -AMIO200T6 PO; -LISI20TA28 PO; +LISI20TA56 PO
[2024-05-27] MEDS: ONDANSETRON HCL 4 MG/2 ML VIAL IV ONE (04:45)
[2024-05-27] MEDS: dilTIAZem 25 MG/5 ML VIAL IV ONE (04:45)
[2024-05-27 05:00] LABS: Basophils # (auto) 0 10 ^3/uL (0-0.2); Basophils % (auto) 0.3 % (0.0-2.0); Eosinophils # (auto) 0 10 ^3/uL (0-0.8); Hematocrit 37.1 % (36.0-46.0); Hemoglobin 12.1 g/dL (12.2-16.2); Lymphocytes # (auto) 1.2 10 ^3/uL (0.4-5.4); Lymphocytes % (auto) 13.4 % (10.0-50.0); Mean Corpuscular Hemoglobin 32.2 pg (28.0-32.0); Mean Corpuscular Hgb Conc. 32.6 g/dL (32.0-36.0); Mean Corpuscular Volume 98.9 fL (80.0-100.0); Monocytes # (auto) 0.4 10 ^3/uL (0-1.3); Monocytes % (auto) 4.4 % (0.0-12.0); Neutrophils # (auto) 7.3 10 ^3/uL (1.6-8.6); Neutrophils % (auto) 81.9 % (37.0-80.0); Nucleated Red Blood Cells % 0.6 %; Platelet Count (auto) 211 10^3/uL (140-450); Red Blood Cells 3.75 10^6/uL (4.0-5.20); White Blood Cell 8.9 10^3/uL (4.4-10.8)
[2024-05-27 05:01] LABS: Red Cell Distribution Width 20.4 % (11.8-14.3)
[2024-05-27 05:20] LABS: Alanine Aminotransferase 17 U/L (7-40); Albumin 4.1 g/dL (3.2-4.8); Alkaline Phosphatase 133 U/L (46-116); Anion Gap 11 (5-15); Aspartate Aminotransferase 28 U/L (13-40); BUN/Creatinine Ratio 12.3 (10.0-20.0); Bilirubin, Total 1.8 mg/dL (0.2-1.0); Blood Urea Nitrogen 14 mg/dL (9-23); Calcium 9.5 mg/dL (8.7-10.4); Carbon Dioxide 22 mmol/L (20-31); Chloride 106 mmol/L (98-107); Glucose 166 mg/dL (74-106); Sodium 139 mmol/L (136-145); Total Protein 6.8 g/dL (5.7-8.2)
--- NOTE | 2024-05-27 05:30 | DVH ---
CHEST RADIOGRAPH Indication:afib rvr Technique: Single frontal view of the chest was obtained COMPARISON: CHEST PORTABLE on DOS: 03/28/21, CXRP on DOS: 03/28/21 FINDINGS: Lines and Tubes: Median sternotomy. Lungs: Mild congestion Pleura: No effusion. No pneumothorax. Cardiomediastinal contours: Cardiomegaly Bones: Unremarkable IMPRESSION: Mild pulmonary vascular congestion
--- NOTE | 2024-05-27 05:34 | ED.PDOC ---
History of Present Illness HPI Comments 83-year-old female PEARL presents wtih a chief complaint of nausea, vomiting, and diarrhea x 2 days. Per EMS, patient was in A-Fib RVR on arrival. HR was in the 140s with all other VSS. Patient denies any chest pain or SOB. A&Ox4. PMHx includes CHF and HTN. Patient also states that she had a heart surgery about 10 years ago. Chief Complaint: Nausea/Vomiting Time Seen by MD: 05:18 Primary Care Provider: KATE Jose Notes: Medications, Allergies Allergies: Coded Allergies: Streptokinases (Unverified Allergy, Unknown, 03/28/21) Home Meds Active Scripts [Nitroglycerin] 0.4 MG SL No Conflict Check, 0.4 MG SL Q5MINP PRN for FOR CHEST PAIN Prov:ELIAS COOK MD 03/12/14 Aspirin (Aspir-Low Ec) 81 Mg Tb, 81 MG PO DAILY, #30 Prov:ELIAS COOK MD 03/12/14 Amiodarone Hcl (Cordarone) 200 Mg Tb, 400 MG PO Q12HR, #60 Prov:ELIAS COOK MD 03/12/14 Reported Medications Lisinopril (Lisinopril) 20 Mg Tab, 20 MG PO DAILY for 30 Days, MG 03/29/21 Methotrexate (Methotrexate) 2.5 Mg Tab, 8 TAB PO QWEEKLY, #32 TAB 2 Refills 03/29/21 Atorvastatin Calcium (ATORVASTATIN CALCIUM) 40 Mg Tab, 1 TAB PO DAILY, #30 TAB 5 Refills 03/29/21 Omeprazole (Gnp Omeprazole) 20 Mg Tab, 40 MG PO DAILY, TAB 03/29/21 Information Source: Patient Mode of Arrival: EMS Severity: Moderate Timing: Hours Duration: Since onset Prehospital treatment: None Past Medical History PAST MEDICAL HISTORY: CAD, High Lipids, HTN, Thyroid Surgical History: CABG CRISIS INTERVENTION COUNSELOR History: No Pertinent CRISIS INTERVENTION COUNSELOR History Family History Family History: Reviewed,noncontributory to illness Social History Smoker: Cigarettes, Less Than 1 Pack/Day Alcohol: Denies ETOH Use Drugs: Denies Drug Use Lives In: Home Constitutional: denies: chills, diaphoresis, fatigue, fever, malaise, sweats, weakness, others EENTM: denies: blurred vision, double vision, ear bleeding, ear discharge, ear drainage, ear pain, ear ringing, eye pain, eye redness, hearing loss, mouth pain, mouth swelling, nasal discharge, nose bleeding, nose congestion, nose pain, photophobia, tearing, throat pain, throat swelling, voice changes, others Respiratory: denies: cough, hemoptysis, orthopnea, SOB at rest, shortness of breath, SOB with excertion, stridor, wheezing, others Cardiovascular: denies: chest pain, dizzy spells, diaphoresis, Dyspnea on exertion, edema, irregular heart beat, left arm pain, lightheadedness, palpitations, PND, syncope, others Gastrointestinal: reports: diarrhea, nausea, vomiting; denies: abdomen distended, abdominal pain, blood streaked bowels, constipated, dysphagia, difficulty swallowing, hematemesis, melena, poor appetite, poor fluid intake, rectal bleeding, rectal pain, others Genitourinary: denies: abnormal vagina bleeding, burning, dyspareunia, dysuria, flank pain, frequency, hematuria, incontinence, pain, , vagina discharge, urgency, others Neurological: denies: dizziness, fainting, headache, left sided numbness, left sided weakness, numbness, paresthesia, pre-existing deficit, right sided numbness, right sided weakness, seizure, speech problems, tingling, tremors, weakness, others Musculoskeletal: denies: back pain, gout, joint pain, joint swelling, muscle pain, muscle stiffness, neck pain, others Integumetry: denies: bruises, change in color, change in hair/nails, dryness, laceration, lesions, lumps, rash, wounds, others Allergic/Immunocompromised: denies: Difficulty Healing, Frequent Infections, Hives, Itching, others Hematologic/Lymphatic: denies: anemia, blood clots, easy bleeding, easy b ruising, swollen glands, others Endocrine: denies: excessive hunger, excessive sweating, excessive thirst, excessive urination, flushing, intolerance to cold, intolerance to heat, unexplained weight gain, unexplained weight loss, others Psychiatric: denies: anxiety, bipolar disorder, depression, hopeless, panic disorder, schizophrenia, sleepless, suicidal, others All Other Systems: Reviewed and Negative Physical Exam General Appearance: No Apparent Distress HEENT: Normal ENT Inspection Neck: Full Range of Motion, Normal Inspection Respiratory: Decreased Breath Sounds, No Accessory Muscle Use, Respiratory Distress (Mild) Cardiovascular: Irregular, Tachycardia Breast Exam: Deferred Gastrointestinal: Non Tender, Soft Genitalia: Deferred Pelvic: Deferred Rectal: Deferred Extremities: Normal inspection, Normal range of motion, Non-tender, No pedal edema Neurologic: Alert, No Motor Deficits, Normal Affect, Normal Mood, No Sensory Deficits Cerebellar Function: NOT DONE Reflexes: NOT DONE Skin: Dry, Pallor, Warm Lymphatic: NOT DONE Was a procedure done? Was a procedure done?: No EKG EKG : Comments AFib with RVR, rate 152, QRS prolonged at 148, QTC prolonged at 506, indeterminate axis, wide complex QRS, nonspecific T change. Differential Dx Considerations may include: AFib RVR, V-tach, other arrhythmia, electrolyte imbalance, dehydration/hypovolemia, mi, CHF, among others X-Ray, Labs, Meds, VS Vital Signs Date Time Temp Pulse Resp B/P (MAP) Pulse Ox O2 Delivery O2 Flow Rate FiO2 05/27/24 05:09 98.4 147 33 116/77 (90) 96 98.4 05/27/24 04:34 98.9 140 17 156/85 (108) 98 05/27/24 04:27 152 Lab Test 05/27/24 05:48 05/27/24 04:46 Range/Units Troponin I High Sensitivity Pending 36 *H </=34 ng/L White Blood Count 8.9 4.4-10.8 10^3/uL Red Blood Count 3.75 L 4.0-5.20 10^6/uL Hemoglobin 12.1 L 12.2-16.2 g/dL Hematocrit 37.1 36.0-46.0 % Mean Corpuscular Volume 98.9 80.0-100.0 fL Mean Corpuscular Hemoglobin 32.2 H 28.0-32.0 pg Mean Corpuscular Hemoglobin Concent 32.6 32.0-36.0 g/dL Red Cell Distribution Width 20.4 H 11.8-14.3 % Platelet Count 211 140-450 10^3/uL Mean Platelet Volume 10.4 6.9-10.8 fL Neutrophils (%) (Auto) 81.9 H 37.0-80.0 % Lymphocytes (%) (Auto) 13.4 10.0-50.0 % Monocytes (%) (Auto) 4.4 0.0-12.0 % Eosinophils (%) (Auto) 0.0 0.0-7.0 % Basophils (%) (Auto) 0.3 0.0-2.0 % Neutrophils # (Auto) 7.3 1.6-8.6 10 ^3/uL Lymphocytes # (Auto) 1.2 0.4-5.4 10 ^3/uL Monocytes # (Auto) 0.4 0-1.3 10 ^3/uL Eosinophils # (Auto) 0 0-0.8 10 ^3/uL Basophils # (Auto) 0 0-0.2 10 ^3/uL Nucleated Red Blood Cells 0.6 % Sodium Level 139 136-145 mmol/L Potassium Level 4.0 3.5-5.1 mmol/L Chloride Level 106 98-107 mmol/L Carbon Dioxide Level 22 20-31 mmol/L Anion Gap 11 5-15 Blood Urea Nitrogen 14 9-23 mg/dL Creatinine 1.14 H 0.550-1.02 mg/dL Glomerular Filtration Rate Calc 47 >90 mL/min BUN/Creatinine Ratio 12.3 10.0-20.0 Serum Glucose 166 H 74-106 mg/dL Calcium Level 9.5 8.7-10.4 mg/dL Magnesium Level 2.0 1.6-2.6 mg/dL Total Bilirubin 1.8 H 0.2-1.0 mg/dL Aspartate Amino Transferase (AST) 28 13-40 U/L Alanine Aminotransferase (ALT) 17 7-40 U/L Alkaline Phosphatase 133 H 46-116 U/L B-Type Natriuretic Peptide 4356.43 0-100 pg/mL Total Protein 6.8 5.7-8.2 g/dL Albumin 4.1 3.2-4.8 g/dL Current Medications Medications (Trade) Dose Ordered Sig/Kajal Route Start Time Stop Time Status Last Admin Diltiazem HCl (Cardizem Injection) 10 mg ONCE ONCE IV 05/27/24 04:45 05/27/24 04:46 DC 05/27/24 04:45 Ondansetron HCl (Zofran) 4 mg ONCE ONCE IV 05/27/24 04:45 05/27/24 04:46 DC 05/27/24 04:45 Aspirin 325 mg ONCE ONCE PO 05/27/24 05:45 05/27/24 05:56 DC 05/27/24 06:04 X-Ray, Labs, Meds, VS Comment 83-year-old female with a history of CAD, CHF, hypertension, thyroid disease brought in by EMS, initially complaining of nausea and vomiting and found to be in AFib with RVR Vitals remarkable for heart rate 152 Exam remarkable for irregularly irregular tachycardic heart rhythm, diminished breath sounds at both bases and mild tachypnea EKG AFib with RVR, wide complex QRS, nonspecific T changes Chest x-ray independently interpreted by me: Cardiomegaly with pulmonary vascular prominence, no definite infiltrate or effusion, normal mediastinal width, grossly normal bony thorax, no free air, no pneumothorax. CBC unremarkable, CMP remarkable for creatinine 1.14, 1st troponin elevated at 36, BNP elevated at 4356.43 Patient treated with the following in the ED: Cardizem 10 mg IV, aspirin 325 mg p.o. On re-evaluation, patient resting comfortably, heart rate , blood pressure stable Plan is to admit the patient for rate control and Cardiology evaluation Case discussed with Dr. Mccord, who will admit the patient. Time of 1ST Reevaluation: 05:46 Reevaluation 1ST: Unchanged Time of 2ND Reevaluation: 05:24 Reevaluation 2ND: Improved Patient Education/Counseling: Diagnosis, Treatment, Prognosis Family Education/Counseling: No Family Present Departure 1 Departure Time of Disposition: 05:42 Impression: Primary Impression: Atrial fibrillation with RVR Additional Impression: Elevated troponin Disposition: 09 ADMITTED INPATIENT Admit to: [facility] Condition: Guarded Critical Care Note Critical Care Time?: Yes (45 min-critical care time only) Critical care comment: Critical care time including multiple bedside re-evaluations, review of laboratory and imaging studies, and discussion of the case with the admitting provider. Patient is high risk for hemodynamic decompensation. Stability Stability form required: No Heart Score Heart Score: Heart Score Response (Comments) Value History N/A 0 EKG N/A 0 Age N/A 0 Risk Factors N/A 0 Troponin N/A 0 Total 0 I personally scribed for RICHARD BARKER MD ([email or web address]) on 05/27/24 at 05:34. Electronically submitted by Matt Pang ([email or web address]). RCIHARD BARKER MD May 27, 2024 05:34
[2024-05-27] MEDS: ASPirin 325 MG TAB PO ONE (06:04)
--- NOTE | 2024-05-27 06:38 | ECG ---
[facility] Test Date: 2024-05-27 Test Time: 04:27:01 Pat Name: NIRMALA MADDOX Department: ED Room: Gender: F Home Management Supervisor: PHUC : [id number] Requested By: RICHARD MELVIN Order Number: [id number] Reading MD: Measurements Intervals [place] Rate: 152 P: 0 WA: 0 QRS: 148 QRSD: 148 T: -34 QT: 318 QTc: 506 Interpretive Statements Extreme tachycardia with wide complex, no further rhythm analysis attempted Please click the below link to view image of tracing.
[2024-05-27] MEDS ORDERED: MORPHINE SULFATE INJ 2 MG/ml SYRG IV PRN (06:45)
[2024-05-27] MEDS ORDERED: NITROGLYCERIN 0.4 MG SL TAB SL PRN (06:45)
[2024-05-27 07:46] LABS: INR 1.44 (0.9-1.15); Prothrombin Time 14.9 sec (9.3-11.8)
[2024-05-27] MEDS: AMIODARONE BOLUS KIT 100 ML IV ONE (07:48)
--- NOTE | 2024-05-27 07:57 | DVHHP2 ---
Admitting Diagnosis: Afib with RVR History of Present Illness HPI 83 y.o. female with CHF, HTN was brought to the ED c/o n/v/d for the past 2-3 days. Patient had EKG in the ED that showed Afib with RVR. Patient was given Cardizem but her HR remained in 130s-140s. Amiodarone IV was started. CXR shows pulmonary vascular congestion and cardiomegaly. Home Meds Active Scripts [Nitroglycerin] 0.4 MG SL No Conflict Check, 0.4 MG SL Q5MINP PRN for FOR CHEST PAIN Prov:ELIAS COOK MD 03/12/14 Aspirin (Aspir-Low Ec) 81 Mg Tb, 81 MG PO DAILY, #30 Prov:ELIAS COOK MD 03/12/14 Amiodarone Hcl (Cordarone) 200 Mg Tb, 400 MG PO Q12HR, #60 Prov:ELIAS COOK MD 03/12/14 Reported Medications Lisinopril (Lisinopril) 20 Mg Tab, 20 MG PO DAILY for 30 Days, MG 03/29/21 Methotrexate (Methotrexate) 2.5 Mg Tab, 8 TAB PO QWEEKLY, #32 TAB 2 Refills 03/29/21 Atorvastatin Calcium (ATORVASTATIN CALCIUM) 40 Mg Tab, 1 TAB PO DAILY, #30 TAB 5 Refills 03/29/21 Omeprazole (Gnp Omeprazole) 20 Mg Tab, 40 MG PO DAILY, TAB 03/29/21 Past Medical History Cardiac: CHF, HTN, Hyperlipidemia Patient Family History: Alcoholism Cancer Family history: Cardiovascular disease Hypertension G8 MOTHER Review of Systems Cardiovascular: Palpitations Gastrointestinal: Nausea, Vomiting, Diarrhea H&P Exam Vital Signs Vital Signs Date Time Temp Pulse Resp B/P (MAP) Pulse Ox O2 Delivery O2 Flow Rate FiO2 05/27/24 07:00 98.4 125 14 121/51 (74) 100 98.4 General Appeara: Obese Head Exam: Normal inspection Neck Exam: Normal inspection Eye Exam: bilateral eye PERRL, bilateral eye EOMI Pulmonary/Respiratory: Crackles Cardiovascular/Chest: Tachycardia, Irregularly irregular Abdominal Exam: Normal bowel sounds Foot: bilateral foot swelling Neuro/Mental St: Alert, Oriented Labs/Xrays Labs Test 05/27/24 05:48 11/12/24 04:46 Range/Units Troponin I High Sensitivity 37 *H </=34 ng/L White Blood Count 8.9 4.4-10.8 10^3/uL Red Blood Count 3.75 L 4.0-5.20 10^6/uL Hemoglobin 12.1 L 12.2-16.2 g/dL Hematocrit 37.1 36.0-46.0 % Mean Corpuscular Volume 98.9 80.0-100.0 fL Mean Corpuscular Hemoglobin 32.2 H 28.0-32.0 pg Mean Corpuscular Hemoglobin Concent 32.6 32.0-36.0 g/dL Red Cell Distribution Width 20.4 H 11.8-14.3 % Platelet Count 211 140-450 10^3/uL Mean Platelet Volume 10.4 6.9-10.8 fL Neutrophils (%) (Auto) 81.9 H 37.0-80.0 % Lymphocytes (%) (Auto) 13.4 10.0-50.0 % Monocytes (%) (Auto) 4.4 0.0-12.0 % Eosinophils (%) (Auto) 0.0 0.0-7.0 % Basophils (%) (Auto) 0.3 0.0-2.0 % Neutrophils # (Auto) 7.3 1.6-8.6 10 ^3/uL Lymphocytes # (Auto) 1.2 0.4-5.4 10 ^3/uL Monocytes # (Auto) 0.4 0-1.3 10 ^3/uL Eosinophils # (Auto) 0 0-0.8 10 ^3/uL Basophils # (Auto) 0 0-0.2 10 ^3/uL Nucleated Red Blood Cells 0.6 % Prothrombin Time 14.9 H 9.3-11.8 sec Prothrombin Time INR 1.44 H 0.9-1.15 Sodium Level 139 136-145 mmol/L Potassium Level 4.0 3.5-5.1 mmol/L Chloride Level 106 98-107 mmol/L Carbon Dioxide Level 22 20-31 mmol/L Anion Gap 11 5-15 Blood Urea Nitrogen 14 9-23 mg/dL Creatinine 1.14 H 0.550-1.02 mg/dL Glomerular Filtration Rate Calc 47 >90 mL/min BUN/Creatinine Ratio 12.3 10.0-20.0 Serum Glucose 166 H 74-106 mg/dL Calcium Level 9.5 8.7-10.4 mg/dL Magnesium Level 2.0 1.6-2.6 mg/dL Total Bilirubin 1.8 H 0.2-1.0 mg/dL Aspartate Amino Transferase (AST) 28 13-40 U/L Alanine Aminotransferase (ALT) 17 7-40 U/L Alkaline Phosphatase 133 H 46-116 U/L B-Type Natriuretic Peptide 4356.43 0-100 pg/mL Total Protein 6.8 5.7-8.2 g/dL Albumin 4.1 3.2-4.8 g/dL Assessment/Plan Problem List: (1) Atrial fibrillation with RVR (2) CHF exacerbation (3) Elevated troponin Plan Amio chet, NS, [place]el[place], ECHO, cardiology consult Plan discussed with: Patient JODIE CHEN MD May 27, 2024 07:57
[2024-05-27] MEDS: AMIODARONE 450mg/250ml AE 250 ML IV SCH ×2 (08:02→13:21)
[2024-05-27 09:24] VITALS: PULSE 127; RESP 17; O2SAT 99
[2024-05-27] MEDS: ENOXAPARIN SOD 80 MG/0.8ML SYRINGE SC SCH (09:40)
[2024-05-27] MEDS ORDERED: ENOXAPARIN SOD 100 MG/1 ML SYRINGE SC SCH (10:00)
--- NOTE | 2024-05-27 12:45 | DVHINCON2 ---
Date of service: May 27, 2024 History of Present Illness 83 yo F with hx of RA< hx of hyperthyroid on Methimazole, hx of CHF on entresto no EF here admitted for afib rvr and elevated bnp. Past Medical History reviewed Family History: Alcoholism Cancer Family history: Cardiovascular disease Hypertension G8 MOTHER Allergies: Coded Allergies: Streptokinases (Unverified Allergy, Unknown, 03/28/21) Home Meds Active Scripts [Nitroglycerin] 0.4 MG SL No Conflict Check, 0.4 MG SL Q5MINP PRN for FOR CHEST PAIN Prov:ELIAS COOK MD 03/12/14 Aspirin (Aspir-Low Ec) 81 Mg Tb, 81 MG PO DAILY, #30 Prov:ELIAS COOK MD 03/12/14 Amiodarone Hcl (Cordarone) 200 Mg Tb, 400 MG PO Q12HR, #60 Prov:ELIAS COOK MD 03/12/14 Reported Medications Lisinopril (Lisinopril) 20 Mg Tab, 20 MG PO DAILY for 30 Days, MG 03/29/21 Methotrexate (Methotrexate) 2.5 Mg Tab, 8 TAB PO QWEEKLY, #32 TAB 2 Refills 03/29/21 Atorvastatin Calcium (ATORVASTATIN CALCIUM) 40 Mg Tab, 1 TAB PO DAILY, #30 TAB 5 Refills 03/29/21 Omeprazole (Gnp Omeprazole) 20 Mg Tab, 40 MG PO DAILY, TAB 03/29/21 Current Medications Current Medications Medications (Trade) Dose Ordered Sig/Kajal Route PRN Reason Start Time Stop Time Status Last Admin Nitroglycerin (Ntrostat Sublingual) 0.4 mg Q5MINP PRN SL FOR CHEST PAIN 05/27/24 06:45 Morphine Sulfate 2 mg Q30M PRN IV FOR CHEST PAIN 05/27/24 06:45 Furosemide (Lasix Injection) 20 mg TID IV 05/27/24 14:00 Amiodarone HCl 250 ml @ 33.333 mls/ hr Q7H30M IV 05/27/24 07:15 05/27/24 13:14 05/27/24 08:02 Amiodarone HCl 250 ml @ 16.667 mls/ hr Q15H IV 05/27/24 13:15 Enoxaparin Sodium (Lovenox) 70 mg Q12HR SC 05/27/24 10:00 05/27/24 09:36 DC Enoxaparin Sodium (Lovenox) 70 mg Q12HR SC 05/27/24 10:00 05/27/24 09:40 Review of Systems 10 pt ros otherwise negative Vital Signs Vital Signs Date Time Temp Pulse Resp B/P (MAP) Pulse Ox O2 Delivery O2 Flow Rate FiO2 05/27/24 12:00 112 05/27/24 11:58 20 109/65 (80) 99 05/27/24 11:00 96.4 96.4 05/27/24 09:24 Nasal Cannula* 2 28 Physical Exam nad s1 s2 irregular tachy diffuse rhonchi abd soft nt/nd Labs/Diagnostic Data Labs Test 05/27/24 08:07 05/27/24 04:46 Range/Units Troponin I High Sensitivity 35 *H </=34 ng/L White Blood Count 8.9 4.4-10.8 10^3/uL Red Blood Count 3.75 L 4.0-5.20 10^6/uL Hemoglobin 12.1 L 12.2-16.2 g/dL Hematocrit 37.1 36.0-46.0 % Mean Corpuscular Volume 98.9 80.0-100.0 fL Mean Corpuscular Hemoglobin 32.2 H 28.0-32.0 pg Mean Corpuscular Hemoglobin Concent 32.6 32.0-36.0 g/dL Red Cell Distribution Width 20.4 H 11.8-14.3 % Platelet Count 211 140-450 10^3/uL Mean Platelet Volume 10.4 6.9-10.8 fL Neutrophils (%) (Auto) 81.9 H 37.0-80.0 % Lymphocytes (%) (Auto) 13.4 10.0-50.0 % Monocytes (%) (Auto) 4.4 0.0-12.0 % Eosinophils (%) (Auto) 0.0 0.0-7.0 % Basophils (%) (Auto) 0.3 0.0-2.0 % Neutrophils # (Auto) 7.3 1.6-8.6 10 ^3/uL Lymphocytes # (Auto) 1.2 0.4-5.4 10 ^3/uL Monocytes # (Auto) 0.4 0-1.3 10 ^3/uL Eosinophils # (Auto) 0 0-0.8 10 ^3/uL Basophils # (Auto) 0 0-0.2 10 ^3/uL Nucleated Red Blood Cells 0.6 % Prothrombin Time 14.9 H 9.3-11.8 sec Prothrombin Time INR 1.44 H 0.9-1.15 Sodium Level 139 136-145 mmol/L Potassium Level 4.0 3.5-5.1 mmol/L Chloride Level 106 98-107 mmol/L Carbon Dioxide Level 22 20-31 mmol/L Anion Gap 11 5-15 Blood Urea Nitrogen 14 9-23 mg/dL Creatinine 1.14 H 0.550-1.02 mg/dL Glomerular Filtration Rate Calc 47 >90 mL/min BUN/Creatinine Ratio 12.3 10.0-20.0 Serum Glucose 166 H 74-106 mg/dL Calcium Level 9.5 8.7-10.4 mg/dL Magnesium Level 2.0 1.6-2.6 mg/dL Total Bilirubin 1.8 H 0.2-1.0 mg/dL Aspartate Amino Transferase (AST) 28 13-40 U/L Alanine Aminotransferase (ALT) 17 7-40 U/L Alkaline Phosphatase 133 H 46-116 U/L B-Type Natriuretic Peptide 4356.43 0-100 pg/mL Total Protein 6.8 5.7-8.2 g/dL Albumin 4.1 3.2-4.8 g/dL Assessment afib rvr HTN hx of hyperthyroid hx of RA hx of CHF NOS suspected systolic advanced HF nyha class III Plan/Recommendation iv lasix check echo amio gtt rate control pt start doac/lovenox for cva prevention Plan discussed with: Patient BESSIE ADAMS MD May 27, 2024 12:45
[2024-05-27] MEDS: CARVEDILOL 12.5 MG TAB PO SCH (13:51)
[2024-05-27] MEDS: metOLazone 5 MG TAB PO ONE (13:51)
[2024-05-27] MEDS: FUROSEMIDE 20 MG/2 ML VIAL IV SCH (14:00)
[2024-05-27] MEDS: DIGOXIN (250MCG/ML) 2 ML AMPULE IV ONE (15:01)
[2024-05-27 18:00] VITALS: BP 117/66; PULSE 75; TEMP 97.7; O2SAT 90
[2024-05-27] MEDS ORDERED: SACU1TAB PO (19:17)
[2024-05-27] MEDS ORDERED: ALEN70TA74 PO (19:18)
[2024-05-27] MEDS ORDERED: CARV3.1240 PO (19:19)
[2024-05-27] MEDS ORDERED: PRIM50TA27 PO (19:20)
[2024-05-27] MEDS ORDERED: FURO20TA3 PO (19:20)
[2024-05-27 20:00] VITALS: PULSE 77
[2024-05-27 21:00] VITALS: BP 101/57; PULSE 69; RESP 16; TEMP 97.4; O2SAT 96
[2024-05-28 01:00] VITALS: BP 133/60; PULSE 78; RESP 16; TEMP 97.4; O2SAT 98
[2024-05-28] MEDS: AMIODARONE 450mg/250ml AE 250 ML IV SCH (01:10)
[2024-05-28 05:00] VITALS: BP 111/58; PULSE 85; RESP 20; TEMP 98; O2SAT 100
[2024-05-28 06:25] LABS: Basophils # (auto) 0 10 ^3/uL (0-0.2); Basophils % (auto) 0.3 % (0.0-2.0); Eosinophils # (auto) 0 10 ^3/uL (0-0.8); Eosinophils % (auto) 0.4 % (0.0-7.0); Hematocrit 34.5 % (36.0-46.0); Hemoglobin 11.2 g/dL (12.2-16.2); Lymphocytes # (auto) 1.3 10 ^3/uL (0.4-5.4); Lymphocytes % (auto) 13.2 % (10.0-50.0); Mean Corpuscular Hemoglobin 31.9 pg (28.0-32.0); Mean Corpuscular Hgb Conc. 32.5 g/dL (32.0-36.0); Mean Corpuscular Volume 98.2 fL (80.0-100.0); Monocytes # (auto) 0.7 10 ^3/uL (0-1.3); Monocytes % (auto) 7.1 % (0.0-12.0); Neutrophils # (auto) 7.8 10 ^3/uL (1.6-8.6); Nucleated Red Blood Cells % 0.1 %; Platelet Count (auto) 151 10^3/uL (140-450); Red Blood Cells 3.52 10^6/uL (4.0-5.20); Red Cell Distribution Width 19.9 % (11.8-14.3); White Blood Cell 9.9 10^3/uL (4.4-10.8)
[2024-05-28 06:51] LABS: Alanine Aminotransferase 17 U/L (7-40); Albumin 3.4 g/dL (3.2-4.8); Alkaline Phosphatase 114 U/L (46-116); Anion Gap 10 (5-15); Aspartate Aminotransferase 19 U/L (13-40); BUN/Creatinine Ratio 11.6 (10.0-20.0); Blood Urea Nitrogen 19 mg/dL (9-23); Calcium 8.7 mg/dL (8.7-10.4); Carbon Dioxide 23 mmol/L (20-31); Chloride 107 mmol/L (98-107); Glucose 90 mg/dL (74-106); Potassium 3.7 mmol/L (3.5-5.1); Sodium 140 mmol/L (136-145)
[2024-05-28 06:52] LABS: Total Protein 5.8 g/dL (5.7-8.2)
--- NOTE | 2024-05-28 07:39 | DVHPN2 ---
Progress Note Date Seen: May 28, 2024 Medical Necessity Reason Pt with a Central, PICC or Fol: No Subjective Other Systems: HR improved creat increased Objective vital signs Vital Sign Date Time Temp Pulse Resp B/P (MAP) Pulse Ox O2 Delivery O2 Flow Rate FiO2 05/28/24 06:14 120/52 05/28/24 05:00 98.0 85 20 100 98.0 05/27/24 20:00 Room Air* 0 21 Total Intake and Output 05/27/24 05/27/24 05/28/24 14:59 22:59 06:59 Intake Total 166.665 ml 473 ml Balance 166.665 ml 473 ml medications Current Medications Medications Dose Ordered Sig/Kajal Route Start Time Stop Time Status Last Admin Dose Admin Nitroglycerin 0.4 mg Q5MINP PRN SL 05/27/24 06:45 Morphine Sulfate 2 mg Q30M PRN IV 05/27/24 06:45 Furosemide 20 mg TID IV 05/27/24 14:00 05/28/24 06:14 20 MG Enoxaparin Sodium 70 mg Q12HR SC 05/27/24 10:00 05/27/24 22:07 70 MG Amiodarone HCl 250 ml @ 16.667 mls/ hr Q15H IV 05/28/24 01:00 05/28/24 01:10 16.667 MLS/HR Examination: GENERAL:Abnormal, LUNGS:Abnormal, CVS:Abnormal, ABDOMEN:Abnormal laboratory and microbiology Laboratory Tests 05/28/24 05:37 Test 05/28/24 05:37 Range/Units Serum Glucose 90 74-106 mg/dL Problem List/Assessment/Plan Problem List/Assessment/Plan CHARLES---2/2 to hypotension and likely advanced HF , hold entresto, cont lasix afib---start doac, rate control pt, resume coreg possibly at 6.25 mg po bid and amiodarone bid dosing sob elevated bnp Plan discussed with: Patient Date of Service: May 28, 2024 Billing Provider: BESSIE ADAMS MD Common Visit Codes: NOT BILLABLE BESSIE ADAMS MD May 28, 2024 07:39
--- NOTE | 2024-05-28 07:48 | DVHSR ---
APPROVED REPORT EXAM: Two-dimensional and M-mode echocardiogram with Doppler and color Doppler. Blood Pressure: 121/51 mmHg INDICATION Afib with RVR, CHF RISK FACTORS Height: 61, Weight: 160 DIMENSIONS LVDd5.6 (3.8-5.7cm)LA (2D)4.6 (1.9-4.0cm)Aortic Root3.7 (2.0-3.7cm) LVDs5.3 (2.5-4.0cm)LA (MM) (1.9-4.0cm)Aortic Cusp Exc1.8 (1.5-2.0cm) EF (%) 11.0 (55-70%)Rt. Atrium5.6 (1.9-4.0cm)Asc. Aorta cm IVSd1.6 (0.7-1.1cm)RV (D) (1.8-2.4cm) PWd1.2 (0.7-1.1cm) Mitral Valve MitralMitral Stenosis E wave1.13m/sMV Mean GR.3mmHg A wavem/sMV Peak GR.120mmHg E/A ratio0.02D MVAcm2 Aortic Valve Aortic ValveAortic Stenosis V10.46m/Kevin Mean GR.3mmHg V21.18m/Kevin Peak GR.6mmHg LVOT Diameter2.4 (1.8-2.4cm)Doppler AVA1.76cm2 AI P 1/2 Dkom403.55ms Tricuspid Valve TR Velocity1.62m/s Other Information Technically limited study due to body habitus and high HR. Conclusion lvef 10% severe dilated LV end stage cardiomyopathy severe MR severe TR dilated biatrial enlargement
[2024-05-28 08:00] VITALS: PULSE 94
[2024-05-28 08:39] LABS: Urine Bacteria MANY /hpf (None Seen); Urine Blood TRACE /uL (Negative); Urine Clarity Turbid (Clear); Urine Color Yellow (Yellow); Urine Hyaline Cast FEW /lpf (0 - 2); Urine Mucus FEW (None Seen); Urine Protein, UAD 1+ (Negative); Urine Specific Gravity 1.013 (1.001-1.035); Urine Urobilinogen 2 mg/dL (Negative); Urine WBC 15 /hpf (0 - 5)
[2024-05-28 09:00] VITALS: BP 114/66; PULSE 77; RESP 18; TEMP 97.6; O2SAT 92
[2024-05-28] MEDS ORDERED: AMIO200T50 PO (10:20)
[2024-05-28] MEDS: AMIODARONE HCL 200 MG TAB PO SCH (12:44)
[2024-05-28 13:26] VITALS: BP 110/55; PULSE 78; RESP 18; TEMP 97.5; O2SAT 93
[2024-05-28] MEDS ORDERED: APIX2.5T PO (15:32)
[2024-05-28] MEDS ORDERED: CIPR-273 PO (15:54)
--- NOTE | 2024-05-28 16:07 | DVHDS2 ---
Discharge Summary Date of Admission May 27, 2024 at 06:44 Date of Discharge: May 28, 2024 Admitting Diagnosis Atrial Fibrillation with rapid ventricular response Wounds: None Labs/Diagnostic Data: Laboratory Results Test 05/28/24 08:15 05/28/24 05:37 05/27/24 08:07 05/27/24 04:46 Urine Color Yellow (Yellow) Urine Clarity Turbid (Clear) Urine pH 5.0 (5.0-9.0) Urine Specific [place] 1.013 (1.001-1.035) Urine Protein 1+ (Negative) Urine Ketones Negative (Negative) Urine Blood Trace /uL (Negative) Urine Nitrite Negative (Negative) Urine Bilirubin Negative (Negative) Urine Urobilinogen 2 mg/dL (Negative) Urine Leukocyte Esterase Trace /uL (Negative) Urine RBC 3 /hpf (0 - 4) Urine WBC 15 /hpf (0 - 5) Urine Squamous Epithelial Cells Mod /hpf (<5) Urine Transitional Epithelial Cells Few /hpf (<2) Urine Bacteria Many /hpf (None Seen) Urine Hyaline Casts Few /lpf (0 - 2) Urine Mucus Few (None Seen) Urine Glucose Normal mg/dL (Normal) White Blood Count 9.9 10^3/uL (4.4-10.8) Red Blood Count 3.52 10^6/uL (4.0-5.20) Hemoglobin 11.2 g/dL (12.2-16.2) Hematocrit 34.5 % (36.0-46.0) Mean Corpuscular Volume 98.2 fL (80.0-100.0) Mean Corpuscular Hemoglobin 31.9 pg (28.0-32.0) Mean Corpuscular Hemoglobin Concent 32.5 g/dL (32.0-36.0) Red Cell Distribution Width 19.9 % (11.8-14.3) Platelet Count 151 10^3/uL (140-450) Mean Platelet Volume 10.1 fL (6.9-10.8) Neutrophils (%) (Auto) 79.0 % (37.0-80.0) Lymphocytes (%) (Auto) 13.2 % (10.0-50.0) Monocytes (%) (Auto) 7.1 % (0.0-12.0) Eosinophils (%) (Auto) 0.4 % (0.0-7.0) Basophils (%) (Auto) 0.3 % (0.0-2.0) Neutrophils # (Auto) 7.8 10 ^3/uL (1.6-8.6) Lymphocytes # (Auto) 1.3 10 ^3/uL (0.4-5.4) Monocytes # (Auto) 0.7 10 ^3/uL (0-1.3) Eosinophils # (Auto) 0 10 ^3/uL (0-0.8) Basophils # (Auto) 0 10 ^3/uL (0-0.2) Nucleated Red Blood Cells 0.1 % Sodium Level 140 mmol/L (136-145) Potassium Level 3.7 mmol/L (3.5-5.1) Chloride Level 107 mmol/L (98-107) Carbon Dioxide Level 23 mmol/L (20-31) Anion Gap 10 (5-15) Blood Urea Nitrogen 19 mg/dL (9-23) Creatinine 1.64 mg/dL (0.550-1.02) Glomerular Filtration Rate Calc 30 mL/min (>90) BUN/Creatinine Ratio 11.6 (10.0-20.0) Serum Glucose 90 mg/dL (74-106) Calcium Level 8.7 mg/dL (8.7-10.4) Total Bilirubin 1.0 mg/dL (0.2-1.0) Aspartate Amino Transferase (AST) 19 U/L (13-40) Alanine Aminotransferase (ALT) 17 U/L (7-40) Alkaline Phosphatase 114 U/L (46-116) Total Protein 5.8 g/dL (5.7-8.2) Albumin 3.4 g/dL (3.2-4.8) Troponin I High Sensitivity 35 ng/L (</=34) Prothrombin Time 14.9 sec (9.3-11.8) Prothrombin Time INR 1.44 (0.9-1.15) Magnesium Level 2.0 mg/dL (1.6-2.6) B-Type Natriuretic Peptide 4356.43 pg/mL (0-100) Other Laboratory Tests 05/28/24 05:37 Brief Hx & Hospital Course: This is an 83 YO Female with cardiomyopathy, essential HTN, and atrial fibrillation who presents to the ER secondary to palpitations. Patient was found to have Atrial fib with RVR and attempt to control patient heart rhythm was unsuccessful with diltiazem IV and patient was transitioned to Amio drip. Patient was seen by cardiology and rate control medication was also given in combination with rhythm control medications. Patient had an incident of hypotension after receiving BP medications with diuretics and was quickly reversed with 500cc NS bolus. Patient responded well to amiodarone and was converted to oral amiodarone and will be discharged on Amiodarone 200mg PO BID with her rate control medication Coreg 3.125mg PO BID. Patient Echocardiogram showed LVEF of 10%, severe dilated LV, end stage cardiomyopathy, severe MR, severe TR, and dilated biatrial enlargement. Patient will be discharged on Eliquis 2.5mg PO BID for stroke prevention. Patient acute kidney injury likely induced by the incident of low blood pressure and should improve over time. Patient will be arranged to go to [facility] for repeat BMP in the next 4-5 days. Patient will be arranged to follow up with her compliance lead to further discuss her anticoagulation and further cardiac medication management. Consults/Reason for consult Dr. [facility] Cardiology Operations or Procedures None Condition at Discharge: Stable Final Diagnosis/Problems List Atrial Fibrillation with rapid venticular reponse, Acute kidney injury Demand related ischemia Uncomlicated UTI Discharge Disposition: Home Discharge Instruct/Medications Diet: Cardiac 2g Na,low cholest Activity: No Restrictions, As Tolerated Follow Up/Referral: PCP Follow up in the next 5-7 days, Cardiology Follow up in the next 3-5 days Repeat BMP on Sunday at [facility] will be arranged by [facility]. Medications: Hold entresto and Lisinopril until you see your primary care provdier or compliance lead. New Medications: Eliquis 2.5mg PO BID For stroke preventin Amiodarone 200mg PO Twice a day Cipro 250mg PO daily for 3 days Discharge Statement: "Patient was advised to return to the ER or call 911 if any headaches, dizziness, shortness of breath, chest pain, abdominal pain, bleeding, fevers, or worsening of medical condition. Patient was counseled about treatment plan, medications, possible side effects, patientverbalized understanding. All questions were answered to the best of my ability. This discharge took greater then 30 minutes in planning, reviewing documentation, counseling the patient, and discussing with other team members." ASSESSMENT ASSESSMENT Assessment Atrial Fibrillation with rapid venticular reponse, acute kidney injury, Demand related ischemia RANGEL LUNA MD May 28, 2024 16:07
[2024-05-28 17:00] VITALS: BP 116/68; PULSE 92; RESP 18; TEMP 97.8; O2SAT 96
[2024-05-28] MEDS: cefTRIAXone 1GM/50ML D5W 50 ML IV ONE (17:46)
== END 2024-05-28 18:40 | disposition home or self-care (01) | DRG 291 ==
LOC: EDBD 04:25 → ER 04:25 → TELE 06:44 → TELE-CENTR 17:50
PROVIDERS: ADMIT Internal Medicine; ATTEND Hospitalist
DX: I11.0 Hypertensive heart disease with heart failure (principal); I50.43 Acute on chronic combined systolic (congestive) and diastolic (congestive) heart failure; N17.0 Acute kidney failure with tubular necrosis; N39.0 Urinary tract infection, site not specified; I24.89 Other forms of acute ischemic heart disease; I48.91 Unspecified atrial fibrillation; R79.89 Other specified abnormal findings of blood chemistry; I08.1 Rheumatic disorders of both mitral and tricuspid valves; E78.5 Hyperlipidemia, unspecified; F17.210 Nicotine dependence, cigarettes, uncomplicated; I25.10 Atherosclerotic heart disease of native coronary artery without angina pectoris; I42.9 Cardiomyopathy, unspecified; Z95.1 Presence of aortocoronary bypass graft; Z82.49 Family history of ischemic heart disease and other diseases of the circulatory system; Z79.82 Long term (current) use of aspirin; Z79.899 Other long term (current) drug therapy; Z81.1 Family history of alcohol abuse and dependence; Z79.01 Long term (current) use of anticoagulants
CPT/HCPCS: 36415; 71045; 80053; 81001; 83735; 83880; 84484; 85025; 85610; 87086; 93005; 93306; 96365; 96375; 99291; G0378; J2405